=== PATIENT | male | born 1965 | race American Indian/Alaskan Native ===

== ENCOUNTER 2019-06-23 15:03 | Inpatient (IN) | payer MEDICARE ==
[2019-06-23] MEDS ORDERED: BISACODYL 10 MG RECT SUPP PR PRN ×2 (15:22→15:33)
[2019-06-23] MEDS ORDERED: POLYETHYLENE GLYCOL 3350 17 GM POWDER PO PRN (15:33)
[2019-06-23] MEDS ORDERED: ONDANSETRON 4 MG ODT TAB PO PRN (15:33)
[2019-06-23] MEDS ORDERED: hydrALAZINE 20 MG/1 ML INJ IV PRN (15:33)
[2019-06-23] MEDS ORDERED: ACETAMINOPHEN 325 MG TAB PO PRN (15:33)
[2019-06-23] MEDS: INSULIN LISPRO 100 UNIT/ML SUB-Q SCH ×2 (16:48→23:15)
[2019-06-23] MEDS ORDERED: HYDROcodone/ACETAMINOPHEN 5-325 MG TAB PO PRN (18:00)
[2019-06-23] MEDS: glipiZIDE 5 MG TAB PO SCH (21:16)
[2019-06-23] MEDS: HEPARIN 5,000 UNIT/1 ML VIAL SUB-Q SCH (21:17)
[2019-06-23] MEDS: FERROUS SULFATE 325 MG TAB PO SCH (21:17)
[2019-06-23] MEDS: CALCIUM ACETATE 667 MG CAP PO SCH (21:17)
[2019-06-24] MEDS: CARVEDILOL 6.25 MG TAB PO SCH ×3 (00:30→22:23)
[2019-06-24 06:19] LABS: Basophils % (Auto) 0.4 % (0.0-1.8); Eosinophils # (Auto) 0.1 K/mm3 (0.0-0.4); Eosinophils % (Auto) 1.7 % (0.0-4.3); Hematocrit 34.1 % (35.5-45.6); Hemoglobin 11.5 gm/dl (11.8-15.2); Lymphocytes # (Auto) 2.5 K/mm3 (1.2-5.4); Lymphocytes % (Auto) 33.4 % (13.4-35.0); Mean Corpuscular HGB Conc 34 % (32-34); Mean Corpuscular Volume 99 fl (84-94); Monocytes # (Auto) 0.6 K/mm3 (0.0-0.8); Monocytes % (Auto) 8.4 % (0.0-7.3); Platelet Count 145 K/mm3 (140-440); Red Blood Count 3.46 M/mm3 (3.65-5.03); Red Cell Distribution Width 15.7 % (13.2-15.2)
[2019-06-24 06:42] LABS: Albumin 4.5 g/dL (3.9-5); Calcium 8.9 mg/dL (8.4-10.2)
[2019-06-24] MEDS: INSULIN LISPRO 100 UNIT/ML SUB-Q SCH ×4 (07:54→22:29)
[2019-06-24] MEDS: FERROUS SULFATE 325 MG TAB PO SCH ×3 (09:30→22:22)
[2019-06-24] MEDS: CALCIUM ACETATE 667 MG CAP PO SCH ×3 (09:30→22:23)
[2019-06-24] MEDS: glipiZIDE 5 MG TAB PO SCH ×2 (09:45→16:48)
--- NOTE | 2019-06-24 10:16 | History and Physical Report ---
History of Present Illness Date: 06/24/19 Referring Facility: [facility] Date of admission: 06/23/19 15:22 Chief Complaint: CVA, left pontine and left cerebellum History of present illness: 53-year-old male who presented to dialysis with several days worth of right- sided weakness and facial droop. He previously been told to go to the ER when the symptoms appeared however he neglected to do so. When reporting for dialysis he was refused dialysis and sent directly to the ER. 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 His primary issue is loss of balance and some weakness accompanied by slight disturbance with dysphagia and slurred speech. Echocardiogram showed an ejection fraction of approximate 65% with grade 1 diastolic dysfunction and a positive PFO without emboli noted. there were PACs noted on EKG with cardiology but A flutter was ruled out. He is recommended to have a Holter test performed with cardiology to look for paroxysmal atrial fibrillation. With that new knowledge we will place him on telemetry monitoring while he is here and also request a cardiology consult. He remains on hemodialysis on Wed/Wed/Wed and dialysis has been consulted and called. Overall he appears to be in fairly good condition all things considered. Hope to see a good return of function for him over the next several weeks in therapy. Unfortunately shortly after arriving the patient was found on the floor. I haven't discussed with him and need to call for assistance until we have cleared him to safely get up and move around on his own. He denies any pain or injuries from the fall. Fall precautions were ordered at time of admission and I have asked again that bed alarm and wheelchair alarms be placed. After the patient was medically stabilized he was transferred for further rehabilitation. All available medical records have been reviewed. Plan of care was discussed with patient. Past History Past Medical History: arrhythmia, anemia, diabetes, dialysis, ESRD, heart failure, hypertension, other (impaired vision (patient states that he needs glasses)) Past Surgical History: Other (left fistula, right Vas-Cath) Social history: lives with family (lives in an apartment with family), smoking (former), full code. denies: alcohol abuse (occasional alcohol use), prescription drug abuse, IV drug use Family history: diabetes, hypertension Medications and Allergies Allergies Allergy/AdvReac Type Severity Reaction Status Date / Time No Known Allergies Allergy Verified 10/01/13 00:30 Home Medications Medication Instructions Recorded Confirmed Last Taken Type Aspirin [Aspirin Enteric Coated] 81 mg PO DAILY #30 tablet. 10/03/13 06/24/19 06/23/19 09:00 Rx Famotidine [Pepcid] 10 mg PO BID #60 tablet 10/03/13 06/24/19 06/23/19 08:00 Rx amLODIPine [Norvasc] 10 mg PO QDAY #30 tablet 10/03/13 06/24/19 06/23/19 08:00 Rx glipiZIDE [Glucotrol] 5 mg PO BID #60 tablet 10/03/13 06/24/19 06/23/19 21:30 Rx Active Meds: Active Medications Acetaminophen (Tylenol) 650 mg PO Q6H PRN PRN Reason: Non Cardiac Pain or Temp>100.5 Acetaminophen/Hydrocodone Bitart ([place] 5/325) 1 each PO Q6H PRN PRN Reason: Pain, Moderate (4-6) Amlodipine Besylate (Norvasc) 2.5 mg PO QDAY [facility] Aspirin (Ecotrin) 325 mg PO QDAY [facility] Atorvastatin Calcium (Lipitor) 40 mg PO QHS [facility] Last Admin: 06/23/19 21:17 Dose: 40 mg Documented by: Bisacodyl (Dulcolax) 10 mg [place] QDAY PRN PRN Reason: Constipation unrelieved by MOM Bisacodyl (Dulcolax) 10 mg [place] QDAY PRN PRN Reason: Constipation Calcium Acetate (Phoslo) 667 mg PO TID [facility] Last Admin: 06/23/19 21:17 Dose: 667 mg Documented by: Carvedilol (Coreg) 6.25 mg PO BID [facility] Last Admin: 06/24/19 00:30 Dose: Not Given Documented by: Dextrose (D50w (25gm) Syringe) 50 ml IV Q30MIN PRN PRN Reason: Hypoglycemia Ferrous Sulfate (Feosol) 325 mg PO TID [facility] Last Admin: 06/23/19 21:17 Dose: 325 mg Documented by: Glipizide (Glucotrol) 5 mg PO BIDDIAB [facility] Last Admin: 06/23/19 21:16 Dose: 5 mg Documented by: Heparin Sodium (Porcine) (Heparin) 5,000 unit SUB-Q Q12HR [facility] Last Admin: 06/23/19 21:17 Dose: 5,000 unit Documented by: Hydralazine HCl (Apresoline) 10 mg IV Q4HR PRN PRN Reason: HTN SBP>160 Insulin Human Lispro (Humalog) 0 unit SUB-Q ACHS [facility]; Protocol Last Admin: 06/24/19 07:54 Dose: Not Given Documented by: Losartan Potassium (Cozaar) 50 mg PO QDAY [facility] Ondansetron HCl (Zofran Odt) 4 mg PO Q8H PRN PRN Reason: Nausea And Vomiting Polyethylene Glycol (Miralax 3350) 17 gm PO QDAY PRN PRN Reason: Constipation Review of Systems All systems: negative (ROS negative for 12 systems except as noted below with pertinent positives and negatives.) Constitutional: weakness, no weight loss Ears, nose, mouth and throat: dysphagia, no decreased hearing Cardiovascular: no chest pain, no palpitations Respiratory: no cough, no shortness of breath Gastrointestinal: constipation, no abdominal pain, no nausea, no vomiting, no diarrhea Genitourinary Male: no dysuria Musculoskeletal: frequent falls, no arm numbness/tingling Integumentary: no rash, no pruritis, no sores Neurological: lack of coordination, change in speech, balance difficulties, gait dysfunction Psychiatric: no memory loss Exam - Exam Narrative exam: MUSCULOSKELETAL SPECIALTY EXAM CONSTITUTIONAL: Well developed, well nourished, appropriately groomed. LEFT hand dominant. LYMPHATIC: No appreciable abnormalities palpable in neck RESPIRATORY: Clear to auscultation bilaterally, no increased work of breathing CARDIOVASCULAR: Regular Rate/ Rhythm, no swelling, edema or tenderness in BUE or BLE. Pulses palpable in all extremities. All extremities warm. Left upper extremity thrill. Right-sided vas cath GI: + bowel sounds, soft, NTTP, nondistended. INTEGUMENTARY: Normal, no lesion, rash, masses or bruising noted in extremities. MUSCULOSKELETAL: BUE and BLE normal without defect, crepitus, subluxation, effusion, arthritic changes or TTP. R 4-/5 L 4+/5 ROM decreased on right Tone normal NEURO: CN II : Visual phipps full to confrontation CN II, III : PERRL CN III, IV, : EOMI CN V : Facial sensation intact CN VII : Slight right facial droop CN VIII : Hearing intact to finger rustle CN IX, X : Palate/uvula elevate midline, phonation normal CN XI : Intact shoulder shrug and head rotation CN XII : Tongue protrudes midline Sensation intact in all extremities without extinction. Reflexes 2+ on the left and 3+ on the right at biceps, brachioradialis and patella. No clonus at ankles. Coordination impaired on the right upper extremity No tremor noted in 4 extremities. Naming and repetition intact. Follows 2 step commands. Aphasia not appreciated Dysarthria slight Dysphagia present Neglect not appreciated POSTURE and GAIT: Sitting posture good. Balance impaired. Gait deferred until seen with therapy. PSYCH: Alert, oriented x3, affect appears flat. Insight appears impaired with lack of appreciation for deficits - Constitutional Vitals: Vital Signs - 12hr 06/24/19 06/24/19 06/24/19 00:28 00:30 03:26 Temperature 37.1 C Pulse Rate 74 78 Pulse Rate [ 72 Right Radial] Respiratory 17 17 Rate Blood Pressure 106/71 Blood Pressure 106/71 [Right] O2 Sat by Pulse 100 98 Oximetry 06/24/19 06/24/19 06/24/19 04:29 04:53 07:03 Temperature 36.9 C 36.7 C Pulse Rate 78 81 Pulse Rate [ Right Radial] Respiratory 20 20 Rate Blood Pressure 100/66 111/71 Blood Pressure [Right] O2 Sat by Pulse 97 98 97 Oximetry 06/24/19 06/24/19 08:36 08:37 Temperature Pulse Rate Pulse Rate [ Right Radial] Respiratory Rate Blood Pressure Blood Pressure [Right] O2 Sat by Pulse 100 100 Oximetry - Labs CBC & Chem 7: 06/24/19 05:42 06/24/19 05:42 Labs: Laboratory Results - last 72 hr 06/23/19 06/23/19 06/24/19 18:05 21:27 05:42 WBC 7.5 RBC 3.46 L Hgb 11.5 L Hct 34.1 L MCV 99 H MCH 33 H MCHC 34 RDW 15.7 H Plt Count 145 Lymph % (Auto) 33.4 [place] % (Auto) 8.4 H Eos % (Auto) 1.7 Baso % (Auto) 0.4 Lymph # 2.5 [place] # 0.6 Eos # 0.1 Baso # 0.0 Seg Neutrophils % 56.1 Seg Neutrophils # 4.2 Sodium Potassium Chloride Carbon Dioxide Anion Gap BUN Creatinine Estimated GFR BUN/Creatinine Ratio Glucose POC Glucose 169 H 154 H Calcium Total Bilirubin AST ALT Alkaline Phosphatase Total Protein Albumin Albumin/Globulin Ratio 06/24/19 06/24/19 05:42 07:12 WBC RBC Hgb Hct MCV MCH MCHC RDW Plt Count Lymph % (Auto) [place] % (Auto) Eos % (Auto) Baso % (Auto) Lymph # [place] # Eos # Baso # Seg Neutrophils % Seg Neutrophils # Sodium 139 Potassium 4.1 Chloride 93.1 L Carbon Dioxide 30 Anion Gap 20 BUN 29 H Creatinine 8.5 H Estimated GFR 8 BUN/Creatinine Ratio 3 Glucose 76 POC Glucose 69 L Calcium 8.9 Total Bilirubin 0.60 AST 26 ALT 20 Alkaline Phosphatase 63 Total Protein 7.8 Albumin 4.5 Albumin/Globulin Ratio 1.4 Assessment and Plan Assessment and plan: Patient was assessed and evaluated for Acute Inpatient Rehab Unit. Due to the patients above-mentioned medical complexity, along with decreased functional mobility and self care, this patient continues to require and be appropriate for a comprehensive, multidisciplinary [id number] rehabilitation program. These needs cannot be met in an outpatient or other less intensive setting. The patient would continue to benefit from skilled therapy intervention for at least 3 hours per day, five days a week, with techniques specific to the needs of the patient to improve function, activities of daily living, and reintegration into the community. The patient continues to require: -- OT to improve ROM, self-care, and learn use of adaptive equipment -- PT to improve strength and balance, functional transfers, and ambulation with energy conservation techniques to improve functional mobility -- LEAD CARPENTER to address cognitive deficits and swallowing ability -- 24 hour RN to ensure and prevent skin breakdown, promote progressive independence while ensuring safety, ensure education regarding medications, and incorporation of the rehabilitation at the bedside -- 24 hour Marriage Therapist to coordinate this interdisciplinary program, and to manage/prevent complications as a result of the patients medical comorbidities. -Plan of care by day 4 -Weekly team conferences With such a program, there is a reasonable certainty that the goals individualized for this patient can be achieved within the specified length of stay. CVA korey and cerebellum: Discussed with patient secondary stroke precautions and prognosis along with length of recovery. We'll continue to have conversation with the patient as we see him during his stay with us on rehabilitation. Continue secondary stroke precautions. Monitor for any neurological changes are need to reassess neuro status. Monitor for poststroke depression. End-stage renal disease on hemodialysis: Continue renal diet. Avoid nephrotoxic medications. Continue hemodialysis on Wednesday. Nephrology consulted. Diabetes: Continue carb controlled diet. Monitor blood glucose and treat with insulin as needed. Continue glipizide and adjust as needed. Hypertension: Continue medications as ordered. Monitor blood pressure and adjust medications as needed for normotension. Reid evaluate patient and see if we need to hold his blood pressure medications prior to dialysis days. Anemia: Chronic disease related. Continue iron and will order further workup as needed. Constipation: Continue medications and adjust as needed. When necessary quiroz ppositories available. Possible paroxysmal atrial fibrillation noted at outside hospital: We'll place on telemetry monitoring and request cardiology consult. Patient also has a PFO. Will need outside cardiology follow-up Z73.6 ADL dysfunction: OT will work on improving ability to perform ADLs (i ncluding assistive devices) to increase independence and decrease caregiver burden and improve functional transfers and mobility training. R26.2 Difficulty walking: PT will work on gait training and proper use of assistive devices and advance as appropriate to use of stairs and outside ambulation on uneven surfaces. R26.81 Unsteadiness on feet: PT will work on improving static and dynamic sitting and standing balance as well as proper use of assistive devices to decrease risk of falls. R26.89 Abnormality of gait: PT will work to improve safety and efficiency of gait through neuromotor training and gait training along with instruction on proper use of assistive devices. M62.81 Muscle weakness: PT & OT will work on strengthening exercises to improve functional strength including mixture of closed and open kinetic chain exercises. R53.81 Debility: PT & OT will work on improving overall functional status to improve participation with ADLs, mobility and social involvement. R53.83 Fatigue: PT & OT will work on improving endurance through aerobic exercises and therapeutic activity while monitoring patients tolerance for activity and vital signs as needed. DVT ppx: heparin Pain: Continue physical modalities in therapy and pain medications as needed to achieve functional pain control. Sleep: Monitor and address as needed. Bowel: Monitor and address as needed. Appetite: Monitor and address as needed. Discharge planning: Pending therapy progress and care plan meeting. Will cont inue discussion with therapy team, SW, patient and family. Restrictions/ Precautions: Falls, dysphagia, neuro WB status: FWB Functional Hx: ADLs: Independent Cognition: Independent Mobility: No AD Barriers to Discharge: Decreased mobility and ability to perform self care, balance deficits, weakness Estimated Length of Stay: 1418 days Discharge Destination: Home with family POST ADMISSION PHYSICIAN EVALUATION I have examined the patient and find that functional status, medical condition a nd appropriateness for IRF admission are essentially unchanged from those described in the preadmission screening. Will monitor for worsening neurologic condition, poststroke depression, shoulder-hand syndrome, DVT/PE, bowel and bladder complications and complications due to end-stage renal disease, diabetes, hypertension, anemia and electrolyte abnormalities. Will attempt to avoid occurrence of these issues or treat them if they present themselves.
--- NOTE | 2019-06-24 11:18 | Consultation ---
Medications and Allergies Allergies Allergy/AdvReac Type Severity Reaction Status Date / Time No Known Allergies Allergy Verified 10/01/13 00:30 Home Medications Medication Instructions Recorded Confirmed Last Taken Type Aspirin [Aspirin Enteric Coated] 81 mg PO DAILY #30 tablet. 10/03/13 06/24/19 06/23/19 09:00 Rx Famotidine [Pepcid] 10 mg PO BID #60 tablet 10/03/13 06/24/19 06/23/19 08:00 Rx amLODIPine [Norvasc] 10 mg PO QDAY #30 tablet 10/03/13 06/24/19 06/23/19 08:00 Rx glipiZIDE [Glucotrol] 5 mg PO BID #60 tablet 10/03/13 06/24/19 06/23/19 21:30 Rx Active Meds: Active Medications Acetaminophen (Tylenol) 650 mg PO Q6H PRN PRN Reason: Non Cardiac Pain or Temp>100.5 Acetaminophen/Hydrocodone Bitart ([place] 5/325) 1 each PO Q6H PRN PRN Reason: Pain, Moderate (4-6) Amlodipine Besylate (Norvasc) 2.5 mg PO QDAY [facility] Aspirin (Ecotrin) 325 mg PO QDAY [facility] Atorvastatin Calcium (Lipitor) 40 mg PO QHS [facility] Last Admin: 06/23/19 21:17 Dose: 40 mg Documented by: Bisacodyl (Dulcolax) 10 mg [place] QDAY PRN PRN Reason: Constipation unrelieved by MOM Bisacodyl (Dulcolax) 10 mg [place] QDAY PRN PRN Reason: Constipation Calcium Acetate (Phoslo) 667 mg PO TID [facility] Last Admin: 06/23/19 21:17 Dose: 667 mg Documented by: Carvedilol (Coreg) 6.25 mg PO BID [facility] Last Admin: 06/24/19 00:30 Dose: Not Given Documented by: Dextrose (D50w (25gm) Syringe) 50 ml IV Q30MIN PRN PRN Reason: Hypoglycemia Ferrous Sulfate (Feosol) 325 mg PO TID [facility] Last Admin: 06/23/19 21:17 Dose: 325 mg Documented by: Glipizide (Glucotrol) 5 mg PO BIDDIAB [facility] Last Admin: 06/23/19 21:16 Dose: 5 mg Documented by: Heparin Sodium (Porcine) (Heparin) 5,000 unit SUB-Q Q12HR [facility] Last Admin: 06/23/19 21:17 Dose: 5,000 unit Documented by: Hydralazine HCl (Apresoline) 10 mg IV Q4HR PRN PRN Reason: HTN SBP>160 Insulin Human Lispro (Humalog) 0 unit SUB-Q ACHS [facility]; Protocol Last Admin: 06/24/19 07:54 Dose: Not Given Documented by: Losartan Potassium (Cozaar) 50 mg PO QDAY [facility] Ondansetron HCl (Zofran Odt) 4 mg PO Q8H PRN PRN Reason: Nausea And Vomiting Polyethylene Glycol (Miralax 3350) 17 gm PO QDAY PRN PRN Reason: Constipation Exam - Vital Signs Vital signs: Vital Signs Temp Pulse Resp BP Pulse Ox 99.3 F 79 18 112/73 100 06/23/19 16:45 06/23/19 16:45 06/23/19 16:45 06/23/19 16:45 06/23/19 16:45 Results - Lab Results 06/24/19 05:42 06/24/19 05:42 Most recent lab results Calcium 8.9 mg/dL (8.4-10.2) 06/24/19 05:42
[2019-06-24] MEDS ORDERED: BISACODYL 5 MG TAB PO PRN (12:04)
[2019-06-24] MEDS: LOSARTAN 50 MG TAB PO SCH (12:52)
[2019-06-24] MEDS: ASPIRIN EC 325 MG TAB PO SCH (12:53)
[2019-06-24] MEDS: amLODIPine 5 MG TAB PO SCH (12:53)
[2019-06-24] MEDS: HEPARIN 5,000 UNIT/1 ML VIAL SUB-Q SCH ×2 (12:56→22:25)
[2019-06-25] MEDS: INSULIN LISPRO 100 UNIT/ML SUB-Q SCH ×4 (07:20→21:50)
[2019-06-25] MEDS: CARVEDILOL 6.25 MG TAB PO SCH ×2 (08:03→21:49)
[2019-06-25] MEDS: ASPIRIN EC 325 MG TAB PO SCH (08:04)
[2019-06-25] MEDS: CALCIUM ACETATE 667 MG CAP PO SCH ×3 (08:04→21:49)
[2019-06-25] MEDS: LOSARTAN 50 MG TAB PO SCH (08:04)
[2019-06-25] MEDS: glipiZIDE 5 MG TAB PO SCH ×2 (08:04→16:32)
[2019-06-25] MEDS: amLODIPine 5 MG TAB PO SCH (08:04)
[2019-06-25] MEDS: FERROUS SULFATE 325 MG TAB PO SCH ×3 (08:04→21:50)
[2019-06-25] MEDS: HEPARIN 5,000 UNIT/1 ML VIAL SUB-Q SCH ×2 (08:05→21:51)
[2019-06-25] MEDS: DEXTROSE 50% IN WATER (25GM) 50 ML SYRINGE IV PRN ×2 (11:43→16:18)
--- NOTE | 2019-06-25 12:08 | Progress Note ---
Subjective Interval history: Patient was seen today for follow-up on multiple renal related issues Events of this hospitalization were noted Interdisciplinary notes were also reviewed Vitals intake output medications were reviewed Past medical history: Reviewed Family, social history: Reviewed Allergies: Reviewed Physical examination General: No acute distress Vitals: Reviewed HEENT: Oral mucosa moist no icterus Neck: Supple no thyromegaly nodular mass or JVD Chest: Clear to auscultation anteriorly Heart: Regular rate and rhythm S1-S2 heard no S3-S4 Abdomen: Soft nontender no suprapubic masses no organomegaly Extremity: Dry skin less than 1+ edema Psych: No evidence of any agitation and aggression noted Derm: No petechial rash Assessment and plan: End-stage renal disease: Patient will continue with hemodialysis treatment on Wednesday and Wednesday ,scheduled as tolerated, monitor dialysis related labs Ultrafiltration only as tolerated Anemia and end-stage renal disease: To monitor and follow, erythropoietin as required goal hemoglobin dialysis patients usually occurring 10 and 12, we will follow Secondary hyperparathyroidism: Monitor phosphorus and PTH periodically and adjust binders as needed Diet and nutrition: Fluid restriction 1200 mL per day, high-protein diet may benefit from nutrition consultation , patient is protein intake should be 1.5 g per KG body weight Hypertension and volume continue to monitor, educated about fluid restriction sodium restriction/ discontinue amlodipine and continue with losartan Patient does exhibit good understanding of the renal related issues All renal related issues were discussed with the patient, patient does exhibit good understanding, lab results were also discussed with patient in simple Thai Prognosis: Guarded We'll continue to follow and make recommendation from renal standpoint Objective - Vital Signs Vital signs: Vital Signs - 12hr 06/25/19 06/25/19 06/25/19 04:30 07:17 08:03 Temperature 98.5 F 98.5 F Pulse Rate 74 69 69 Respiratory 20 18 Rate Blood Pressure 102/55 100/62 100/60 O2 Sat by Pulse 94 99 Oximetry 06/25/19 06/25/19 08:04 11:28 Temperature 98.3 F Pulse Rate 69 71 Respiratory 18 Rate Blood Pressure 100/60 114/70 O2 Sat by Pulse 99 Oximetry - Lab 06/24/19 05:42 06/24/19 05:42 Most recent lab results Calcium 8.9 mg/dL (8.4-10.2) 06/24/19 05:42 Medications & Allergies - Medications Allergies/Adverse Reactions: Allergies No Known Allergies Allergy (Verified 10/01/13 00:30) Home Medications: Home Medications Medication Instructions Recorded Confirmed Last Taken Type Aspirin [Aspirin Enteric Coated] 81 mg PO DAILY #30 tablet. 10/03/13 06/24/19 06/23/19 09:00 Rx Famotidine [Pepcid] 10 mg PO BID #60 tablet 10/03/13 06/24/19 06/23/19 08:00 Rx amLODIPine [Norvasc] 10 mg PO QDAY #30 tablet 10/03/13 06/24/19 06/23/19 08:00 Rx glipiZIDE [Glucotrol] 5 mg PO BID #60 tablet 10/03/13 06/24/19 06/23/19 21:30 Rx Active Medications: Generic Name Dose Route Start Last Admin Trade Name Freq PRN Reason Stop Dose Admin Acetaminophen 650 mg 06/23/19 15:33 Tylenol PO Q6H PRN Non Cardiac Pain or Temp>100.5 Acetaminophen/Hydrocodone Bitart 1 each 06/23/19 18:00 [place] 5/325 PO Q6H PRN Pain, Moderate (4-6) Amlodipine Besylate 2.5 mg 06/24/19 08:00 06/25/19 08:04 Norvasc PO 2.5 mg QDAY [facility] Administration Aspirin 325 mg 06/24/19 08:00 06/25/19 08:04 Ecotrin PO 325 mg QDAY [facility] Administration Atorvastatin Calcium 40 mg 06/23/19 21:00 06/24/19 22:23 Lipitor PO 40 mg QHS [facility] Administration Bisacodyl 10 mg 06/23/19 15:33 Dulcolax [place] QDAY PRN Constipation Bisacodyl 5 mg 06/24/19 12:04 Dulcolax PO QDAY PRN Constipation Calcium Acetate 667 mg 06/23/19 20:00 06/25/19 08:04 Phoslo PO 667 mg TID [facility] Administration Carvedilol 6.25 mg 06/23/19 22:00 06/25/19 08:03 Coreg PO 6.25 mg BID [facility] Administration Dextrose 50 ml 06/23/19 15:22 06/25/19 11:43 D50w (25gm) Syringe IV 50 ml Q30MIN PRN Administration Hypoglycemia Ferrous Sulfate 325 mg 06/23/19 20:00 06/25/19 08:04 Feosol PO 325 mg TID [facility] Administration Glipizide 5 mg 06/23/19 17:30 06/25/19 08:04 Glucotrol PO 5 mg BIDDIAB [facility] Administration Heparin Sodium (Porcine) 5,000 unit 06/23/19 22:00 06/24/19 22:25 Heparin SUB-Q 5,000 unit Q12HR [facility] Administration Hydralazine HCl 10 mg 06/23/19 15:33 Apresoline IV Q4HR PRN HTN SBP>160 Insulin Human Lispro 0 unit 06/23/19 16:30 06/25/19 11:38 Humalog SUB-Q Not Given ACHS [facility] Protocol Losartan Potassium 50 mg 06/24/19 08:00 06/25/19 08:04 Cozaar PO 50 mg QDAY [facility] Administration Ondansetron HCl 4 mg 06/23/19 15:33 Zofran Odt PO Q8H PRN Nausea And Vomiting Polyethylene Glycol 17 gm 06/23/19 15:33 06/24/19 15:00 Miralax 3350 PO 17 gm QDAY PRN Administration Constipation
[2019-06-25] MEDS ORDERED: SODIUM CHLORIDE 0.9% 100 ML IV PRN (12:30)
[2019-06-25 12:47] LABS: Hepatitis B Surface Antigen Non-Reactive (Negative); Hepatitis C Virus Antibody Non-Reactive (NonReactive)
[2019-06-26] MEDS: INSULIN LISPRO 100 UNIT/ML SUB-Q SCH ×4 (07:35→22:22)
[2019-06-26] MEDS: FERROUS SULFATE 325 MG TAB PO SCH ×3 (08:05→22:21)
[2019-06-26] MEDS: CALCIUM ACETATE 667 MG CAP PO SCH ×4 (08:07→19:09)
[2019-06-26] MEDS: CARVEDILOL 6.25 MG TAB PO SCH ×2 (08:34→22:21)
[2019-06-26] MEDS: ASPIRIN EC 325 MG TAB PO SCH (12:05)
[2019-06-26] MEDS: HEPARIN 5,000 UNIT/1 ML VIAL SUB-Q SCH ×2 (12:06→22:22)
[2019-06-26] MEDS: glipiZIDE 5 MG TAB PO SCH ×2 (13:07→18:39)
--- NOTE | 2019-06-26 13:25 | Progress Note ---
Subjective Date of service: 06/26/19 Principal diagnosis: CVA, left pontine and left cerebellum Interval history: 53-year-old male who presented to dialysis with several days worth of right-sided weakness and facial droop. He previously been told to go to the ER when the symptoms appeared however he neglected to do so. When reporting for dialysis he was refused dialysis and sent directly to the ER. 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 His primary issue is loss of balance and some weakness accompanied by slight disturbance with dysphagia and slurred speech. Echocardiogram showed an ejection fraction of approximate 65% with grade 1 diastolic dysfunction and a positive PFO without emboli noted. there were PACs noted on EKG with cardiology but A flutter was ruled out. He is recommended to have a Holter test performed with cardiology to look for paroxysmal atrial fibrillation. With that new knowledge we will place him on telemetry monitoring while he is here and also request a cardiology consult. He remains on hemodialysis on Wed/Wed/Wed and dialysis has been consulted and called. Overall he appears to be in fairly good condition all t hings considered. Hope to see a good return of function for him over the next several weeks in therapy. Unfortunately shortly after arriving the patient was found on the floor. I haven't discussed with him and need to call for assistance until we have cleared him to safely get up and move around on his own. He denies any pain or injuries from the fall. Fall precautions were ordered at time of admission and I have asked again that bed alarm and wheelchair alarms be placed. Patient is participating in therapy and making reasonable progress. Taking rest breaks as needed. +BM. Denies pain, palpitations, dyspnea, cough, N/V, weakness, or joint pain. We'll take a look at telemetry monitoring results today. We'll contact corporate travel manager to see if they will keep an eye on the patient while he is here on telemetry. We'll likely still need Holter monitoring as requested at outside hospital at discharge. Examined by [employer] and noted to have improved with swallowing and has advanced to regular/thin liquids. Multiple hypoglycemic episodes. Reduce glipizide and monitor. Patient still has decreased ability to perform self care, ADLs, and safe mobility with increased loss of balance and remains appropriate for inpatient rehabilitation. We will continue to monitor the patient's blood pressure, diabetes control, and renal function while regaining function and ability to perform self care. All records, vitals, labs and medications were reviewed. No other issues per patient, nursing or therapy. Objective - Exam Narrative Exam: MUSCULOSKELETAL SPECIALTY EXAM CONSTITUTIONAL: Well developed, well nourished, appropriately groomed. LEFT hand dominant. RESPIRATORY: Clear to auscultation bilaterally, no increased work of breathing CARDIOVASCULAR: Regular Rate/ Rhythm, no swelling, edema or tenderness in BUE or BLE. All extremities warm. Left upper extremity thrill. Right-sided vas cath GI: + bowel sounds, soft, NTTP, nondistended. INTEGUMENTARY: Normal, no lesion, rash, masses or bruising noted in extremities. MUSCULOSKELETAL: BUE and BLE normal without defect, crepitus, subluxation, effusion, arthritic changes or TTP. R 4-/5 L 4+/5 ROM decreased on right Tone normal NEURO: Slight right facial droop Sensation intact in all extremities without extinction. No tremor noted in 4 extremities. Naming and repetition intact. Follows 2 step commands. Aphasia not appreciated Dysarthria slight Dysphagia advanced to regular thins after examination by [employer] Neglect not appreciated POSTURE and GAIT: Sitting posture good. Balance impaired. Gait better with rolling walker, loss of balance occasionally. PSYCH: Alert, oriented x3, affect appears flat. Insight appears impaired with lack of appreciation for deficits - Constitutional Vitals: Vital Signs - 12hr 06/26/19 06/26/19 04:24 07:32 Temperature 36.8 C 36.6 C Pulse Rate 73 67 Respiratory 17 18 Rate Blood Pressure 108/65 119/66 O2 Sat by Pulse 97 99 Oximetry - Allied health notes Allied health notes reviewed: nursing, PT, ST, OT FIMS assessment as documented by PT/OT/ST: Social interaction/Memory/Problem solving Social Interaction FIM Score 7. Complete [place] (Interacts appropriately. Controls temper.) Memory FIM Score 4. Minimal Assistance (Recognizes and remembers 75-90%.) Problem Solving FIM Score 3. Moderate Assistance (Solves routine problems 50-74%.) Locomotion- walk/wheelchair Ambulation Distance 40 Eating Eating FIM Score 5. Supervision/Set-Up (Needs help w/ containers, cutting meat, etc.) - Labs CBC & Chem 7: 06/24/19 05:42 06/24/19 05:42 Labs: Laboratory Results - last 72 hr 06/23/19 06/23/19 06/24/19 18:05 21:27 05:42 WBC 7.5 RBC 3.46 L Hgb 11.5 L Hct 34.1 L MCV 99 H MCH 33 H MCHC 34 RDW 15.7 H Plt Count 145 Lymph % (Auto) 33.4 [place] % (Auto) 8.4 H Eos % (Auto) 1.7 Baso % (Auto) 0.4 Lymph # 2.5 [place] # 0.6 Eos # 0.1 Baso # 0.0 Seg Neutrophils % 56.1 Seg Neutrophils # 4.2 Sodium Potassium Chloride Carbon Dioxide Anion Gap BUN Creatinine Estimated GFR BUN/Creatinine Ratio Glucose POC Glucose 169 H 154 H Calcium Total Bilirubin AST ALT Alkaline Phosphatase Total Protein Albumin Albumin/Globulin Ratio Hepatitis A IgM Ab Hep Bs Antigen Hep B Core IgM Ab Hepatitis C Antibody 06/24/19 06/24/19 06/24/19 05:42 07:12 11:12 WBC RBC Hgb Hct MCV MCH MCHC RDW Plt Count Lymph % (Auto) [place] % (Auto) Eos % (Auto) Baso % (Auto) Lymph # [place] # Eos # Baso # Seg Neutrophils % Seg Neutrophils # Sodium 139 Potassium 4.1 Chloride 93.1 L Carbon Dioxide 30 Anion Gap 20 BUN 29 H Creatinine 8.5 H Estimated GFR 8 BUN/Creatinine Ratio 3 Glucose 76 POC Glucose 69 L 191 H Calcium 8.9 Total Bilirubin 0.60 AST 26 ALT 20 Alkaline Phosphatase 63 Total Protein 7.8 Albumin 4.5 Albumin/Globulin Ratio 1.4 Hepatitis A IgM Ab Hep Bs Antigen Hep B Core IgM Ab Hepatitis C Antibody 06/24/19 06/24/19 06/25/19 16:24 21:39 07:28 WBC RBC Hgb Hct MCV MCH MCHC RDW Plt Count Lymph % (Auto) [place] % (Auto) Eos % (Auto) Baso % (Auto) Lymph # [place] # Eos # Baso # Seg Neutrophils % Seg Neutrophils # Sodium Potassium Chloride Carbon Dioxide Anion Gap BUN Creatinine Estimated GFR BUN/Creatinine Ratio Glucose POC Glucose 127 H 91 95 Calcium Total Bilirubin AST ALT Alkaline Phosphatase Total Protein Albumin Albumin/Globulin Ratio Hepatitis A IgM Ab Hep Bs Antigen Hep B Core IgM Ab Hepatitis C Antibody 06/25/19 06/25/19 06/25/19 11:29 11:38 12:17 WBC RBC Hgb Hct MCV MCH MCHC RDW Plt Count Lymph % (Auto) [place] % (Auto) Eos % (Auto) Baso % (Auto) Lymph # [place] # Eos # Baso # Seg Neutrophils % Seg Neutrophils # Sodium Potassium Chloride Carbon Dioxide Anion Gap BUN Creatinine Estimated GFR BUN/Creatinine Ratio Glucose POC Glucose 46 L 191 H Calcium Total Bilirubin AST ALT Alkaline Phosphatase Total Protein Albumin Albumin/Globulin Ratio Hepatitis A IgM Ab Non-reactive Hep Bs Antigen Non-reactive Hep B Core IgM Ab Non-reactive Hepatitis C Antibody Non-reactive 06/25/19 06/25/19 06/25/19 16:13 18:01 20:16 WBC RBC Hgb Hct MCV MCH MCHC RDW Plt Count Lymph % (Auto) [place] % (Auto) Eos % (Auto) Baso % (Auto) Lymph # [place] # Eos # Baso # Seg Neutrophils % Seg Neutrophils # Sodium Potassium Chloride Carbon Dioxide Anion Gap BUN Creatinine Estimated GFR BUN/Creatinine Ratio Glucose POC Glucose 55 L 86 65 L Calcium Total Bilirubin AST ALT Alkaline Phosphatase Total Protein Albumin Albumin/Globulin Ratio Hepatitis A IgM Ab Hep Bs Antigen Hep B Core IgM Ab Hepatitis C Antibody 06/25/19 06/26/19 06/26/19 21:59 03:05 07:41 WBC RBC Hgb Hct MCV MCH MCHC RDW Plt Count Lymph % (Auto) [place] % (Auto) Eos % (Auto) Baso % (Auto) Lymph # [place] # Eos # Baso # Seg Neutrophils % Seg Neutrophils # Sodium Potassium Chloride Carbon Dioxide Anion Gap BUN Creatinine Estimated GFR BUN/Creatinine Ratio Glucose POC Glucose 92 105 56 L Calcium Total Bilirubin AST ALT Alkaline Phosphatase Total Protein Albumin Albumin/Globulin Ratio Hepatitis A IgM Ab Hep Bs Antigen Hep B Core IgM Ab Hepatitis C Antibody 06/26/19 11:42 WBC RBC Hgb Hct MCV MCH MCHC RDW Plt Count Lymph % (Auto) [place] % (Auto) Eos % (Auto) Baso % (Auto) Lymph # [place] # Eos # Baso # Seg Neutrophils % Seg Neutrophils # Sodium Potassium Chloride Carbon Dioxide Anion Gap BUN Creatinine Estimated GFR BUN/Creatinine Ratio Glucose POC Glucose 135 H Calcium Total Bilirubin AST ALT Alkaline Phosphatase Total Protein Albumin Albumin/Globulin Ratio Hepatitis A IgM Ab Hep Bs Antigen Hep B Core IgM Ab Hepatitis C Antibody Assessment and Plan CVA korey and cerebellum: Discussed with patient secondary stroke precautions and prognosis along with length of recovery. We'll continue to have conversation with the patient as we see him during his stay with us on rehabilitation. Continue secondary stroke precautions. Monitor for any neurological changes are need to reassess neuro status. Monitor for poststroke depression. End-stage renal disease on hemodialysis: Continue renal diet. Avoid nephrotoxic medications. Continue hemodialysis on Wednesday. Nephrology consulted. Diabetes: Continue carb controlled diet. Monitor blood glucose and treat with insulin as needed. Continue glipizide and adjust as needed -decreased due to hypoglycemic episodes on a regular basis. Hypertension: Continue medications as ordered. Monitor blood pressure and adjust medications as needed for normotension. Will evaluate patient and see if we need to hold his blood pressure medications prior to dialysis days. Anemia: Chronic disease related. Continue iron and will order further workup as needed. Constipation: Continue medications and adjust as needed. When necessary suppositories available. Possible paroxysmal atrial fibrillation noted at outside hospital: We'll place on telemetry monitoring and request cardiology consult. Patient also has a PFO. Will need outside cardiology follow-up Z73.6 ADL dysfunction: OT will work on improving ability to perform ADLs (including assistive devices) to increase independence and decrease caregiver burden and improve functional transfers and mobility training. R26.2 Difficulty walking: PT will work on gait training and proper use of assistive devices and advance as appropriate to use of stairs and outside ambulation on uneven surfaces. R26.81 Unsteadiness on feet: PT will work on improving static and dynamic sitting and standing balance as well as proper use of assistive devices to decrease risk of falls. R26.89 Abnormality of gait: PT will work to improve safety and efficiency of gait through neuromotor training and gait training along with instruction on proper use of assistive devices. M62.81 Muscle weakness: PT & OT will work on strengthening exercises to improve functional strength including mixture of closed and open kinetic chain exercises. R53.81 Debility: PT & OT will work on improving overall functional status to improve participation with ADLs, mobility and social involvement. R53.83 Fatigue: PT & OT will work on improving endurance through aerobic exercises and therapeutic activity while monitoring patients tolerance for activity and vital signs as needed. DVT ppx: heparin Pain: Continue physical modalities in therapy and pain medications as needed to achieve functional pain control. Sleep: Monitor and address as needed. Bowel: Monitor and address as needed. Appetite: Monitor and address as needed. Discharge planning: Pending therapy progress and care plan meeting. Will continue discussion with therapy team, SW, patient and family. Restrictions/ Precautions: Falls, dysphagia, neuro WB status: FWB Functional Hx: ADLs: Independent Cognition: Independent Mobility: No AD Barriers to Discharge: Decreased mobility and ability to perform self care, balance deficits, weakness Estimated Length of Stay: 1418 days Discharge Destination: Home with family
--- NOTE | 2019-06-26 13:32 | IRU Plan of Care ---
Interdisciplinary Plan of Care - IP IRU INTERDISCIPLINARY PLAN: [facility] Inpatient Rehab Unit Plan of Care IRU Interdisciplinary Care Plan Start: 06/23/19 17:15 Freq: Admission then PRN Status: Active Protocol: Document 06/26/19 12:29 TH (Rec: 06/26/19 12:57 TH [id number]) Interdisciplinary Problem List Interdisciplinary Problem List Interdisciplinary Problem List Impaired Eating/Swallowing, Query Text:Answers will Trigger Problems Impaired Bathing/Grooming, and Outcomes on Worklist. Impaired Dressing,Impaired Mobility,Impaired Transfers, Impaired Toileting,Impaired Comprehension,Impaired Expression,Impaired Problem Solving,Impaired Memory, Knowledge Deficits,Discharge Concerns,Impaired Safety, Medications Education,Diabetes Education,Impaired Cardiovascular System IRU Interdisciplinary Care Plan Therapy Services Therapy Services Will Include: Physical Therapy,Occupational Query Text:Patient will be seen for a Therapy,Speech Therapy minimum of 3 hours of daily therapy 5 out of 7 days a week. Therapy intensity may be adjusted within a 7 consecutive day period to effectively serve the individual needs of the patient. Treatment Frequency/Intensity/Duration Treatment Frequency 5x per week Treatment Intensity 3 hours per day Treatment Duration 14-18 days Problem Area: Eating/Swallowing Eating/Swallowing Outcomes Eating/Swallowing Interventions Problem Area: Bathing/Grooming Bathing/Grooming Outcomes Improve [place] w/ Grooming,Improve [place] w/ Bathing Bathing/Grooming Interventions ADL Training,Use of Assistive Devices,Therapeutic Exercise, Therapeutic Activity, Neuromuscular Re-Education, Balance Work,Activity Tolerance Work,Patient/ Caregiver Education Problem Area: Dressing Dressing Outcomes Improve [place] w/ UB Dressing,Improve [place] w/ LB Dressing Dressing Interventions ADL Training,Use of Assistive Devices,Neuromuscular Re- Education,Therapeutic Exercise ,Balance Work,Modalities, Patient/Caregiver Education Problem Area: Mobility Mobility Outcomes Improve [place] w/ Bed Mobility,Improve [place] w/ Ambulation,Improve [place] w/ Stairs/Curb, Improve [place] w/ Wheelchair Mobility Interventions Therapeutic Exercise, Neuromuscular Re-Ed.,Activity Tolerance Work,Use of Assistive Devices,Patient/ Caregiver Education,Gait Training,Household Mobility Work,W/C Mobility Work Problem Area: Transfers Transfers Outcomes Improve [place] w/ Bed Transfers,Improve [place] w/ Toilet Transfers,Improve [place] w/ Tub/Shower Transfers,Improve [place] w/ Car Transfers Transfers Interventions Transfer Training,Therapeutic Exercise,Neuromuscular Re- Education,Activity Tolerance Work,Use of Assistive Devices, Patient/Caregiver Education Problem Area: Bowel/Bladder Managment Bowel/Bladder Outcomes Bowel/Bladder Interventions Problem Area: Toileting Toileting Outcomes Improve [place] w/ Toileting Toileting Interventions ADL Training,Balance Work,Use of Assistive Devices,Patient/ Caregiver Education Problem Area: Nutrition Nutrition Outcomes Nutrition Interventions Problem Area: Comprehension Comprehension Outcomes Improve Comprehension,Follow Commands,Improve Communication Comprehension Interventions Patient/Caregiver Education Problem Area: Expression Expression Outcomes Improve Intelligibility, Improve Verbalization Expression Interventions Expressive Language,Patient/ Caregiver Education Problem Area: Problem Solving Problem Solving Outcomes Improve Problem Solving Problem Solving Interventions Cognitive Training,Patient/ Caregiver Education Problem Area: Memory Memory Outcomes Use Memory Aids Memory Interventions Patient/Caregiver Education Problem Area: Pain Management Pain Management Outcomes Pain Management Interventions Problem Area: Knowledge Deficits Knowledge Deficits Outcomes Demonstrate Ability to Manage Blood Glucose,Verbalize Understanding of S/S of Stroke Knowledge Deficits Interventions Disease/Injury/Sx. Intervention Education,Disease Management Education,Health Maintainence Education Problem Area: Skin/Tissue Integrity Skin/Tissue Integrity Outcomes Skin/Tissue Integrity Interventions Problem Area: Social Interaction Social Interaction Outcomes Social Interaction Interventions Problem Area: Adjustment to Disability Adjustment to Disability Outcomes Adjustment to Disability Interventions Problem Area: Discharge Concerns Discharge Concerns Outcomes Discharge w/ Necessary Equipment,Have Home Health/ Outpatient Services Discharge Concerns Interventions Discharge Planning,Family/ Caregiver Training Problem Area: Community Reintegration Community Reintegration Outcomes Community Reintegration Interventions Problem Area: Home Management Home Management Outcomes Improve [place] w/ Home Management Home Management Interventions Meal Preparation,Clothing Care ,Activity Tolerance Work, Leisure Skills Development, House Cleaning,Shopping, Patient/Caregiver Education Problem Area: Safety Safety Outcomes Demonstrate Good Safety w/ Transfers/Mobility Safety Interventions Identify Fall Risk,Re-Educate Patient/Caregiver for Safety ( Post Fall Update) Problem Area: Medication Education Medication Education Outcomes Patient/Caregiver will Verbalize Understanding of Medications Medication Education Interventions Explain Administration/Side Effects/Interactions Problem Area: Diabetes Education Diabetes Education Outcomes Demonstrate Knowledge of Resources Availlable in Diabetic Ed. Folder Diabetes Education Interventions Discuss Pathophysiology of Diabetes Problem Area: Oxygenation Oxygenation Outcomes Oxygenation Interventions Problem Area: Cardiovascular Cardiovascular Outcomes Maintain or Improve Cardiovascular Status Cardiovascular Interventions Assess Vital Signs at least Every 4 hours,Cardiac Monitoring, EKG and ABG as Ordered. Physician Only Medical Prognosis and Rehabilitation Potential (Completed by Physician) patient has good medical prognosis and rehabilitation potential. Fortunately his CVA left him with reasonable strength but he does have fairly significant loss of balance. Input for the plan of care has been obtained from various therapy disciplines and has been reviewed and deemed appropriate/edited by me. Patient will discharge home with family who will help provide care for him and he does live in a second- floor apartment with them. This plan of care has been developed based on the findings from the pre- admission assessment, post admission physician evaluation, information gathered from the assessments from all therapy disciplines and other pertinent clinicians. The plan of care has been reviewed and discussed in collaboration with the interdisciplinary team. The plan of care will be reviewed and updated at least weekly.
[2019-06-26] MEDS: LOSARTAN 50 MG TAB PO SCH (19:09)
[2019-06-26] MEDS ORDERED: SODIUM CHLORIDE*PRIMING MACHINE ONLY FOR DIALYSIS MC ONE (19:54)
--- NOTE | 2019-06-26 21:11 | Progress Note ---
Assessment and Plan - Patient Problems (1) End stage renal disease Current Visit: Yes Status: Acute Plan to address problem: End stage renal disease : continue HD MWF right IJ perm cath has left arm AVF. (2) CVA (cerebral vascular accident) Current Visit: Yes Status: Acute Plan to address problem: acute CVA -currently undergoing rehab right sided weakness reviewed CT with left cerebellar and pontine infarct continue aspirin and statin (3) Diabetes Current Visit: No Status: Chronic Plan to address problem: DM type II ensure medicaton monitor fingersticks. (4) Hypertension Current Visit: No Status: Chronic Plan to address problem: HTN; controlled. continue current medications. Subjective Principal diagnosis: CVA, left pontine and left cerebellum Interval history: 53 year old with medical history of HTN , ESRD admitted with right sided weakness , gait instabilit found to have acute left cerebellar and pointe infarct. patient seen today undergoing rehab. denies any edema denies any shortness of breath Objective - Vital Signs Vital signs: Vital Signs - 12hr 06/26/19 06/26/19 06/26/19 12:39 14:20 14:30 Temperature 98.1 F 98.2 F Pulse Rate 74 73 67 Respiratory 18 18 Rate Blood Pressure 112/57 125/67 129/64 O2 Sat by Pulse 99 Oximetry 06/26/19 06/26/19 06/26/19 14:45 15:00 15:15 Temperature Pulse Rate 67 68 67 Respiratory Rate Blood Pressure 120/67 119/67 117/67 O2 Sat by Pulse Oximetry 06/26/19 06/26/19 06/26/19 15:30 15:45 16:00 Temperature Pulse Rate 73 72 76 Respiratory Rate Blood Pressure 114/81 139/78 129/82 O2 Sat by Pulse Oximetry 06/26/19 06/26/19 06/26/19 16:15 16:30 16:45 Temperature Pulse Rate 73 75 80 Respiratory Rate Blood Pressure 139/76 135/82 135/59 O2 Sat by Pulse Oximetry 06/26/19 06/26/19 06/26/19 17:00 17:15 17:30 Temperature Pulse Rate 75 73 73 Respiratory Rate Blood Pressure 139/79 128/69 121/73 O2 Sat by Pulse Oximetry 06/26/19 06/26/19 06/26/19 17:50 18:00 19:48 Temperature 98.0 F 98.0 F Pulse Rate 74 76 82 Respiratory 18 17 Rate Blood Pressure 138/72 138/72 112/65 O2 Sat by Pulse 99 Oximetry - General Appearance General appearance: well-developed, well-nourished EENT: ATNC, PERRL Neck: no JVD Respiratory: Present: Clear to Ascultation Cardiology: regular, S1S2 Gastrointestinal: normal, normoactive bowel sounds Integumentary: no rash Neurologic: CN 3-12 intact, other (right sided weakness.) Musculoskeletal: other (no edema) Psychiatric: mood/affect appropriate - Lab 06/24/19 05:42 06/24/19 05:42 Most recent lab results Calcium 8.9 mg/dL (8.4-10.2) 06/24/19 05:42 - Imaging Other: other (i reviewed CT with concern for left sided cerebellar infarct. ) Medications & Allergies - Medications Allergies/Adverse Reactions: Allergies No Known Allergies Allergy (Verified 10/01/13 00:30) Home Medications: Home Medications Medication Instructions Recorded Confirmed Last Taken Type Aspirin [Aspirin Enteric Coated] 81 mg PO DAILY #30 tablet. 10/03/13 06/24/19 06/23/19 09:00 Rx Famotidine [Pepcid] 10 mg PO BID #60 tablet 10/03/13 06/24/19 06/23/19 08:00 Rx amLODIPine [Norvasc] 10 mg PO QDAY #30 tablet 10/03/13 06/24/19 06/23/19 08:00 Rx glipiZIDE [Glucotrol] 5 mg PO BID #60 tablet 10/03/13 06/24/19 06/23/19 21:30 Rx Active Medications: Generic Name Dose Route Start Last Admin Trade Name Freq PRN Reason Stop Dose Admin Acetaminophen 650 mg 06/23/19 15:33 Tylenol PO Q6H PRN Non Cardiac Pain or Temp>100.5 Acetaminophen/Hydrocodone Bitart 1 each 06/23/19 18:00 [place] 5/325 PO Q6H PRN Pain, Moderate (4-6) Aspirin 325 mg 06/24/19 08:00 06/26/19 12:05 Ecotrin PO 325 mg QDAY SANTY Administration Atorvastatin Calcium 40 mg 06/23/19 21:00 06/25/19 21:48 Lipitor PO 40 mg QHS SANTY Administration Bisacodyl 10 mg 06/23/19 15:33 Dulcolax MO QDAY PRN Constipation Bisacodyl 5 mg 06/24/19 12:04 Dulcolax PO QDAY PRN Constipation Calcium Acetate 667 mg 06/26/19 08:47 06/26/19 19:09 Phoslo PO 667 mg TIDWM SANTY Administration Carvedilol 6.25 mg 06/23/19 22:00 06/26/19 08:34 Coreg PO Not Given BID SANTY Dextrose 50 ml 06/23/19 15:22 06/25/19 16:18 D50w (25gm) Syringe IV 50 ml Q30MIN PRN Administration Hypoglycemia Ferrous Sulfate 325 mg 06/23/19 20:00 06/26/19 13:06 Feosol PO 325 mg TID SANTY Administration Glipizide 2.5 mg 06/26/19 13:19 06/26/19 18:39 Glucotrol PO Not Given BIDDIAB [facility] Heparin Sodium (Porcine) 5,000 unit 06/23/19 22:00 06/26/19 12:06 Heparin SUB-Q 5,000 unit Q12HR SANTY Administration Hydralazine HCl 10 mg 06/23/19 15:33 Apresoline IV Q4HR PRN HTN SBP>160 Sodium Chloride 100 mls @ 999 mls/hr 06/25/19 12:30 Nacl 0.9% IV ALLAN PRN Hypotension Insulin Human Lispro 0 unit 06/23/19 16:30 06/26/19 17:11 Humalog SUB-Q Not Given ACHS [facility] Protocol Losartan Potassium 50 mg 06/24/19 08:00 06/26/19 19:09 Cozaar PO 50 mg QDAY SANTY Administration Ondansetron HCl 4 mg 06/23/19 15:33 Zofran Odt PO Q8H PRN Nausea And Vomiting Polyethylene Glycol 17 gm 06/23/19 15:33 06/24/19 15:00 Miralax 3350 PO 17 gm QDAY PRN Administration Constipation
[2019-06-27] MEDS: INSULIN LISPRO 100 UNIT/ML SUB-Q SCH ×4 (08:36→22:16)
[2019-06-27] MEDS: CALCIUM ACETATE 667 MG CAP PO SCH ×3 (09:18→17:02)
[2019-06-27] MEDS: ASPIRIN EC 325 MG TAB PO SCH (09:18)
[2019-06-27] MEDS: FERROUS SULFATE 325 MG TAB PO SCH ×3 (09:18→22:17)
[2019-06-27] MEDS: glipiZIDE 5 MG TAB PO SCH ×2 (09:20→17:06)
[2019-06-27] MEDS: CARVEDILOL 6.25 MG TAB PO SCH ×2 (10:28→22:15)
[2019-06-27] MEDS: LOSARTAN 50 MG TAB PO SCH (10:29)
--- NOTE | 2019-06-27 10:52 | Progress Note ---
Subjective Date of service: 06/27/19 Principal diagnosis: CVA, left pontine and left cerebellum Interval history: 53-year-old male who presented to dialysis with several days worth of right-sided weakness and facial droop. He previously been told to go to the ER when the symptoms appeared however he neglected to do so. When reporting for dialysis he was refused dialysis and sent directly to the ER. 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 His primary issue is loss of balance and some weakness accompanied by slight disturbance with dysphagia and slurred speech. Echocardiogram showed an ejection fraction of approximate 65% with grade 1 diastolic dysfunction and a positive PFO without emboli noted. there were PACs noted on EKG with cardiology but A flutter was ruled out. He is recommended to have a Holter test performed with cardiology to look for paroxysmal atrial fibrillation. With that new knowledge we will place him on telemetry monitoring while he is here and also request a cardiology consult. He remains on hemodialysis on Wed/Wed/Wed and dialysis has been consulted and called. Overall he appears to be in fairly good condition all t hings considered. Hope to see a good return of function for him over the next several weeks in therapy. Unfortunately shortly after arriving the patient was found on the floor. I haven't discussed with him and need to call for assistance until we have cleared him to safely get up and move around on his own. He denies any pain or injuries from the fall. Fall precautions were ordered at time of admission and I have asked again that bed alarm and wheelchair alarms be placed. Patient is participating in therapy and making reasonable progress. Taking rest breaks as needed. -BM. Denies pain, palpitations, dyspnea, cough, N/V, weakness, or joint pain. Telemonitoring with no abnormal results so far. Adjust bowel meds, positive flatus but denies BM today. Blood glucose looks better. Attempted ambulation with quadcane - not safe at this point, still dragging R toe. Patient still has decreased ability to perform self care, ADLs, and safe mobility with increased loss of balance and remains appropriate for inpatient rehabilitation. We will continue to monitor the patient's blood pres sure, diabetes control, and renal function while regaining function and ability to perform self care. All records, vitals, labs and medications were reviewed. No other issues per patient, nursing or therapy. Objective - Exam Narrative Exam: MUSCULOSKELETAL SPECIALTY EXAM CONSTITUTIONAL: Well developed, well nourished, appropriately groomed. LEFT hand dominant. RESPIRATORY: Clear to auscultation bilaterally, no increased work of breathing CARDIOVASCULAR: Regular Rate/ Rhythm, no swelling, edema or tenderness in BUE or BLE. All extremities warm. Left upper extremity thrill. Right-sided cath GI: + bowel sounds, soft, NTTP, nondistended. INTEGUMENTARY: Normal, no lesion, rash, masses or bruising noted in extremities. MUSCULOSKELETAL: BUE and BLE normal without defect, crepitus, subluxation, effusion, arthritic changes or TTP. R 4-/5 L 4+/5 ROM decreased on right Tone normal NEURO: Slight right facial droop Sensation intact in all extremities without extinction. No tremor noted in 4 extremities. Naming and repetition intact. Follows 2 step commands. Aphasia not appreciated Dysarthria slight Dysphagia advanced to regular thins after examination by RAG WILLOW OPERATOR Neglect not appreciated POSTURE and GAIT: Sitting posture good. Balance impaired. Gait better with rolling walker, loss of balance. PSYCH: Alert, oriented x3, affect appears flat. Insight appears impaired with lack of appreciation for deficits - Constitutional Vitals: Vital Signs - 12hr 06/27/19 06/27/19 06/27/19 04:34 04:40 06:34 Temperature 37.0 C Pulse Rate 66 69 69 Respiratory 17 Rate Blood Pressure Blood Pressure 97/56 [Right] O2 Sat by Pulse 96 96 Oximetry 06/27/19 06/27/19 06/27/19 07:34 10:24 10:28 Temperature 36.8 C Pulse Rate 69 70 96 H Respiratory 18 Rate Blood Pressure 103/56 103/56 Blood Pressure 105/60 [Right] O2 Sat by Pulse 96 Oximetry 06/27/19 10:29 Temperature Pulse Rate 96 H Respiratory Rate Blood Pressure 103/56 Blood Pressure [Right] O2 Sat by Pulse Oximetry - Allied health notes Allied health notes reviewed: nursing, PT, ST, OT FIMS assessment as documented by PT/OT/ST: Social interaction/Memory/Problem solving Social Interaction FIM Score 7. Complete [place] (Interacts appropriately. Controls temper.) Memory FIM Score 4. Minimal Assistance (Recognizes and remembers 75-90%.) Problem Solving FIM Score 3. Moderate Assistance (Solves routine problems 50-74%.) Transfers Mode of Locomotion: Wheelchair Bed/Chair/Wheelchair Transfers 4. Minimal Assistance (Patient = 75% or more. FIM Score Needs touching.) Locomotion- walk/wheelchair Ambulation Distance 40 Eating Eating FIM Score 5. Supervision/Set-Up (Needs help w/ containers, cutting meat, etc.) - Labs CBC & Chem 7: 06/24/19 05:42 06/27/19 08:45 Labs: Laboratory Results - last 72 hr 06/24/19 06/24/19 06/24/19 11:12 16:24 21:39 Sodium Potassium Chloride Carbon Dioxide Anion Gap BUN Creatinine Estimated GFR BUN/Creatinine Ratio Glucose POC Glucose 191 H 127 H 91 Calcium Hepatitis A IgM Ab Hep Bs Antigen Hep B Core IgM Ab Hepatitis C Antibody 06/25/19 06/25/19 06/25/19 07:28 11:29 11:38 Sodium Potassium Chloride Carbon Dioxide Anion Gap BUN Creatinine Estimated GFR BUN/Creatinine Ratio Glucose POC Glucose 95 46 L Calcium Hepatitis A IgM Ab Non-reactive Hep Bs Antigen Non-reactive Hep B Core IgM Ab Non-reactive Hepatitis C Antibody Non-reactive 06/25/19 06/25/19 06/25/19 12:17 16:13 18:01 Sodium Potassium Chloride Carbon Dioxide Anion Gap BUN Creatinine Estimated GFR BUN/Creatinine Ratio Glucose POC Glucose 191 H 55 L 86 Calcium Hepatitis A IgM Ab Hep Bs Antigen Hep B Core IgM Ab Hepatitis C Antibody 06/25/19 06/25/19 06/26/19 20:16 21:59 03:05 Sodium Potassium Chloride Carbon Dioxide Anion Gap BUN Creatinine Estimated GFR BUN/Creatinine Ratio Glucose POC Glucose 65 L 92 105 Calcium Hepatitis A IgM Ab Hep Bs Antigen Hep B Core IgM Ab Hepatitis C Antibody 06/26/19 06/26/19 06/26/19 07:41 11:42 18:43 Sodium Potassium Chloride Carbon Dioxide Anion Gap BUN Creatinine Estimated GFR BUN/Creatinine Ratio Glucose POC Glucose 56 L 135 H 52 L Calcium Hepatitis A IgM Ab Hep Bs Antigen Hep B Core IgM Ab Hepatitis C Antibody 06/26/19 06/27/19 06/27/19 22:03 07:56 08:04 Sodium Potassium Chloride Carbon Dioxide Anion Gap BUN Creatinine Estimated GFR BUN/Creatinine Ratio Glucose POC Glucose 132 H 50 L 45 L Calcium Hepatitis A IgM Ab Hep Bs Antigen Hep B Core IgM Ab Hepatitis C Antibody 06/27/19 06/27/19 08:45 09:16 Sodium 136 L Potassium 4.5 Chloride 93.7 L Carbon Dioxide 26 Anion Gap 21 BUN 36 H Creatinine 9.3 H Estimated GFR 7 BUN/Creatinine Ratio 4 Glucose 153 H POC Glucose 166 H Calcium 9.0 Hepatitis A IgM Ab Hep Bs Antigen Hep B Core IgM Ab Hepatitis C Antibody Assessment and Plan CVA korey and cerebellum: Discussed with patient secondary stroke precautions and prognosis along with length of recovery. We'll continue to have conversation with the patient as we see him during his stay with us on rehabilitation. Continue secondary stroke precautions. Monitor for any neurological changes are need to reassess neuro status. Monitor for poststroke depression. End-stage renal disease on hemodialysis: Continue renal diet. Avoid nephrotoxic medications. Continue hemodialysis on Wednesday. Nephrology consulted. Diabetes: Continue carb controlled diet. Monitor blood glucose and treat with insulin as needed. Continue glipizide and adjust as needed -decreased due to hypoglycemic episodes on a regular basis. Hypertension: Continue medications as ordered. Monitor blood pressure and adjust medications as needed for normotension. Will evaluate patient and see if we need to hold his blood pressure medications prior to dialysis days. Anemia: Chronic disease related. Continue iron and will order further workup as needed. Constipation: Continue medications and adjust as needed. PRN suppositories av ailable. Scheduled miralax Possible paroxysmal atrial fibrillation noted at outside hospital: We'll place on telemetry monitoring and request cardiology consult. Patient also has a PFO. Will need outside cardiology follow-up Z73.6 ADL dysfunction: OT will work on improving ability to perform ADLs (including assistive devices) to increase independence and decrease caregiver burden and improve functional transfers and mobility training. R26.2 Difficulty walking: PT will work on gait training and proper use of assistive devices and advance as appropriate to use of stairs and outside ambulation on uneven surfaces. R26.81 Unsteadiness on feet: PT will work on improving static and dynamic sit ting and standing balance as well as proper use of assistive devices to decrease risk of falls. R26.89 Abnormality of gait: PT will work to improve safety and efficiency of gait through neuromotor training and gait training along with instruction on proper use of assistive devices. M62.81 Muscle weakness: PT & OT will work on strengthening exercises to improve functional strength including mixture of closed and open kinetic chain exercises. R53.81 Debility: PT & OT will work on improving overall functional status to improve participation with ADLs, mobility and social involvement. R53.83 Fatigue: PT & OT will work on improving endurance through aerobic exercises and therapeutic activity while monitoring patients tolerance for activity and vital signs as needed. DVT ppx: heparin Pain: Continue physical modalities in therapy and pain medications as needed to achieve functional pain control. Sleep: Monitor and address as needed. Bowel: Monitor and address as needed. Appetite: Monitor and address as needed. Discharge planning: Pending therapy progress and care plan meeting. Will continue discussion with therapy team, SW, patient and family. Restrictions/ Precautions: Falls, dysphagia, neuro WB status: FWB Functional Hx: ADLs: Independent Cognition: Independent Mobility: No AD Barriers to Discharge: Decreased mobility and ability to perform self care, balance deficits, weakness Estimated Length of Stay: 1418 days Discharge Destination: Home with family
--- NOTE | 2019-06-27 11:07 | Progress Note ---
Assessment and Plan - Patient Problems (1) End stage renal disease Current Visit: Yes Status: Acute Plan to address problem: End stage renal disease : continue HD MWF right IJ perm cath has left arm AVF. (2) CVA (cerebral vascular accident) Current Visit: Yes Status: Acute Plan to address problem: acute CVA -currently undergoing rehab right sided weakness reviewed CT with left cerebellar and pontine infarct continue aspirin and statin (3) Diabetes Current Visit: No Status: Chronic Plan to address problem: DM type II ensure medicaton monitor fingersticks. (4) Hypertension Current Visit: No Status: Chronic Plan to address problem: HTN; controlled. continue current medications. Subjective Principal diagnosis: CVA, left pontine and left cerebellum Interval history: 53 year old with medical history of HTN , ESRD admitted with right sided weakness , gait instabilit found to have acute left cerebellar and pointe infarct. patient seen today received HD yesterday no fevers or chills. denies any edema denies any shortness of breath Objective - Vital Signs Vital signs: Vital Signs - 12hr 06/27/19 06/27/19 06/27/19 04:34 04:40 06:34 Temperature 98.6 F Pulse Rate 66 69 69 Respiratory 17 Rate Blood Pressure Blood Pressure 97/56 [Right] O2 Sat by Pulse 96 96 Oximetry 06/27/19 06/27/19 06/27/19 07:34 10:24 10:28 Temperature 98.2 F Pulse Rate 69 70 96 H Respiratory 18 Rate Blood Pressure 103/56 103/56 Blood Pressure 105/60 [Right] O2 Sat by Pulse 96 Oximetry 06/27/19 10:29 Temperature Pulse Rate 96 H Respiratory Rate Blood Pressure 103/56 Blood Pressure [Right] O2 Sat by Pulse Oximetry - General Appearance General appearance: well-developed, well-nourished EENT: ATNC, PERRL Neck: no JVD Respiratory: Present: Clear to Ascultation Cardiology: regular, S1S2 Gastrointestinal: normal, normoactive bowel sounds Integumentary: no rash Neurologic: alert and oriented x3, CN 3-12 intact Psychiatric: mood/affect appropriate - Lab 06/24/19 05:42 06/27/19 08:45 Most recent lab results Calcium 9.0 mg/dL (8.4-10.2) 06/27/19 08:45 - Imaging Kidney/bladder ultrasound: other (i reviewed renal us with large kidneys bilaterally. ) Medications & Allergies - Medications Allergies/Adverse Reactions: Allergies No Known Allergies Allergy (Verified 10/01/13 00:30) Home Medications: Home Medications Medication Instructions Recorded Confirmed Last Taken Type Aspirin [Aspirin Enteric Coated] 81 mg PO DAILY #30 tablet. 10/03/13 06/24/19 06/23/19 09:00 Rx Famotidine [Pepcid] 10 mg PO BID #60 tablet 10/03/13 06/24/19 06/23/19 08:00 Rx amLODIPine [Norvasc] 10 mg PO QDAY #30 tablet 10/03/13 06/24/19 06/23/19 08:00 Rx glipiZIDE [Glucotrol] 5 mg PO BID #60 tablet 10/03/13 06/24/19 06/23/19 21:30 Rx Active Medications: Generic Name Dose Route Start Last Admin Trade Name Freq PRN Reason Stop Dose Admin Acetaminophen 650 mg 06/23/19 15:33 Tylenol PO Q6H PRN Non Cardiac Pain or Temp>100.5 Acetaminophen/Hydrocodone Bitart 1 each 06/23/19 18:00 [place] 5/325 PO Q6H PRN Pain, Moderate (4-6) Aspirin 325 mg 06/24/19 08:00 06/27/19 09:18 Ecotrin PO 325 mg QDAY SANTY Administration Atorvastatin Calcium 40 mg 06/23/19 21:00 06/26/19 22:21 Lipitor PO 40 mg QHS SANTY Administration Bisacodyl 10 mg 06/23/19 15:33 Dulcolax DC QDAY PRN Constipation Bisacodyl 5 mg 06/24/19 12:04 Dulcolax PO QDAY PRN Constipation Calcium Acetate 667 mg 06/26/19 08:47 06/27/19 09:18 Phoslo PO 667 mg TIDWM SANTY Administration Carvedilol 6.25 mg 06/23/19 22:00 06/27/19 10:28 Coreg PO Not Given BID SANTY Dextrose 50 ml 06/23/19 15:22 06/25/19 16:18 D50w (25gm) Syringe IV 50 ml Q30MIN PRN Administration Hypoglycemia Ferrous Sulfate 325 mg 06/23/19 20:00 06/27/19 09:18 Feosol PO 325 mg TID SANTY Administration Glipizide 2.5 mg 06/26/19 13:19 06/27/19 09:20 Glucotrol PO 2.5 mg BIDDIAB [facility] Administration Heparin Sodium (Porcine) 5,000 unit 06/23/19 22:00 06/26/19 22:22 Heparin SUB-Q 5,000 unit Q12HR SANTY Administration Hydralazine HCl 10 mg 06/23/19 15:33 Apresoline IV Q4HR PRN HTN SBP>160 Sodium Chloride 100 mls @ 999 mls/hr 06/25/19 12:30 Nacl 0.9% IV ALLAN PRN Hypotension Insulin Human Lispro 0 unit 06/23/19 16:30 06/27/19 08:36 Humalog SUB-Q Not Given ACHS [facility] Protocol Losartan Potassium 50 mg 06/24/19 08:00 06/27/19 10:29 Cozaar PO Not Given QDAY [facility] Ondansetron HCl 4 mg 06/23/19 15:33 Zofran Odt PO Q8H PRN Nausea And Vomiting Polyethylene Glycol 17 gm 06/23/19 15:33 06/24/19 15:00 Miralax 3350 PO 17 gm QDAY PRN Administration Constipation
[2019-06-27] MEDS: HEPARIN 5,000 UNIT/1 ML VIAL SUB-Q SCH ×2 (11:12→22:15)
[2019-06-27] MEDS: POLYETHYLENE GLYCOL 3350 17 GM POWDER PO SCH (13:55)
--- NOTE | 2019-06-27 15:23 | Consultation ---
History of Present Illness Consult date: 06/27/19 Consult reason: known to you History of present illness: This is a 53-year old who was recently admitted to [facility] with acute CVA with right sided residual. During that admission, an echocardiogram was positive for PFO. Normal left ventricular ejection fraction 65%. Cardiology evaluated the patient during that hospital stay for suspected arrhythmias but atrial fibrillation was ruled out with recommendation for an outpatient Holter monitor. Patient is now admitted to this hospital for rehabilitation. A cardiac consultation has been requested to evaluation for arrhythmias. Patient denies chest pain, shortness of breath and palpitations. There is no ECG available for review. Telemetry strips shows a stable sinus rhythm. No evidence of arrhythmias. Past History Past Medical History: arrhythmia, anemia, diabetes, dialysis, ESRD, heart failure, hypertension, other (impaired vision (patient states that he needs glasses)) Past Surgical History: Other (left fistula, right Vas-Cath) Social history: lives with family (lives in an apartment with family), smoking (former), full code. denies: alcohol abuse (occasional alcohol use), prescription drug abuse, IV drug use Family history: diabetes, hypertension Medications and Allergies Allergies Allergy/AdvReac Type Severity Reaction Status Date / Time No Known Allergies Allergy Verified 10/01/13 00:30 Home Medications Medication Instructions Recorded Confirmed Last Taken Type Aspirin [Aspirin Enteric Coated] 81 mg PO DAILY #30 tablet. 10/03/13 06/24/19 06/23/19 09:00 Rx Famotidine [Pepcid] 10 mg PO BID #60 tablet 10/03/13 06/24/19 06/23/19 08:00 Rx amLODIPine [Norvasc] 10 mg PO QDAY #30 tablet 10/03/13 06/24/19 06/23/19 08:00 Rx glipiZIDE [Glucotrol] 5 mg PO BID #60 tablet 10/03/13 06/24/19 06/23/19 21:30 Rx Active Meds: Active Medications Acetaminophen (Tylenol) 650 mg PO Q6H PRN PRN Reason: Non Cardiac Pain or Temp>100.5 Acetaminophen/Hydrocodone Bitart ([place] 5/325) 1 each PO Q6H PRN PRN Reason: Pain, Moderate (4-6) Aspirin (Ecotrin) 325 mg PO QDAY SANTY Last Admin: 06/27/19 09:18 Dose: 325 mg Documented by: Atorvastatin Calcium (Lipitor) 40 mg PO QHS [facility] Last Admin: 06/26/19 22:21 Dose: 40 mg Documented by: Bisacodyl (Dulcolax) 10 mg ND QDAY PRN PRN Reason: Constipation Bisacodyl (Dulcolax) 5 mg PO QDAY PRN PRN Reason: Constipation Calcium Acetate (Phoslo) 667 mg PO TIDWM [facility] Last Admin: 06/27/19 13:55 Dose: 667 mg Documented by: Carvedilol (Coreg) 6.25 mg PO BID [facility] Last Admin: 06/27/19 10:28 Dose: Not Given Documented by: Dextrose (D50w (25gm) Syringe) 50 ml IV Q30MIN PRN PRN Reason: Hypoglycemia Last Admin: 06/25/19 16:18 Dose: 50 ml Documented by: Ferrous Sulfate (Feosol) 325 mg PO TID [facility] Last Admin: 06/27/19 13:55 Dose: 325 mg Documented by: Glipizide (Glucotrol) 2.5 mg PO BIDDIAB [facility] Last Admin: 06/27/19 09:20 Dose: 2.5 mg Documented by: Heparin Sodium (Porcine) (Heparin) 5,000 unit SUB-Q Q12HR [facility] Last Admin: 06/27/19 11:12 Dose: 5,000 unit Documented by: Hydralazine HCl (Apresoline) 10 mg IV Q4HR PRN PRN Reason: HTN SBP>160 Sodium Chloride (Nacl 0.9%) 100 mls @ 999 mls/hr IV ALLAN PRN PRN Reason: Hypotension Insulin Human Lispro (Humalog) 0 unit SUB-Q ACHS [facility]; Protocol Last Admin: 06/27/19 11:40 Dose: Not Given Documented by: Losartan Potassium (Cozaar) 50 mg PO QDAY [facility] Last Admin: 06/27/19 10:29 Dose: Not Given Documented by: Ondansetron HCl (Zofran Odt) 4 mg PO Q8H PRN PRN Reason: Nausea And Vomiting Polyethylene Glycol (Miralax 3350) 17 gm PO QDAY [facility] Last Admin: 06/27/19 13:55 Dose: 17 gm Documented by: Physical Examination Vital Signs Temp Pulse Resp BP Pulse Ox 99.3 F 79 18 112/73 100 06/23/19 16:45 06/23/19 16:45 06/23/19 16:45 06/23/19 16:45 06/23/19 16:45 General appearance: no acute distress HEENT: Positive: PERRL Neck: Positive: trachea midline Cardiac: Positive: Reg Rate and Rhythm Lungs: Positive: Normal Breath Sounds Neuro: Positive: Weakness (right sided) Extremities: Absent: edema Results 06/24/19 05:42 06/27/19 08:45 Comprehensive Metabolic Panel 06/27/19 Range/Units 08:45 Sodium 136 L (137-145) mmol/L Potassium 4.5 (3.6-5.0) mmol/L Chloride 93.7 L (98-107) mmol/L Carbon Dioxide 26 (22-30) mmol/L BUN 36 H (9-20) mg/dL Creatinine 9.3 H (0.8-1.5) mg/dL Glucose 153 H (75-100) mg/dL Calcium 9.0 (8.4-10.2) mg/dL Assessment and Plan Recent CVA ESRD on dialysis Hypertension Patent PFO Normal left ventricular ejection fraction 65% by echocardiogram at [facility] 06/2019. Recommendations: Obtain 12-lead ECG. Continue telemetry monitoring.
--- NOTE | 2019-06-28 08:03 | Progress Note ---
Subjective Date of service: 06/28/19 Principal diagnosis: CVA, left pontine and left cerebellum Interval history: 53-year-old male who presented to dialysis with several days worth of right-sided weakness and facial droop. He previously been told to go to the ER when the symptoms appeared however he neglected to do so. When reporting for dialysis he was refused dialysis and sent directly to the ER. 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 His primary issue is loss of balance and some weakness accompanied by slight disturbance with dysphagia and slurred speech. Echocardiogram showed an ejection fraction of approximate 65% with grade 1 diastolic dysfunction and a positive PFO without emboli noted. there were PACs noted on EKG with cardiology but A flutter was ruled out. He is recommended to have a Holter test performed with cardiology to look for paroxysmal atrial fibrillation. With that new knowledge we will place him on telemetry monitoring while he is here and also request a cardiology consult. He remains on hemodialysis on Wed/Wed/Wed and dialysis has been consulted and called. Overall he appears to be in fairly good condition all t hings considered. Hope to see a good return of function for him over the next several weeks in therapy. Unfortunately shortly after arriving the patient was found on the floor. I haven't discussed with him and need to call for assistance until we have cleared him to safely get up and move around on his own. He denies any pain or injuries from the fall. Fall precautions were ordered at time of admission and I have asked again that bed alarm and wheelchair alarms be placed. Patient is participating in therapy and making reasonable progress. Taking rest breaks as needed. +BM, small, not difficult to pass. Denies pain, palpitations, dyspnea, cough, N/V, or joint pain. Telemonitoring with no abnormal results so far. Blood glucose running low glipizide. Have are decreased the medication and initially saw an improvement however he may not be eating well on the hospital diet. Will stop the glipizide and just control with sliding scale for now and he may resume the glipizide once he returns home. Seen by cardiology yesterday and they will continue telemetry monitoring. They will sign off and reconsult if needed. EKG performed and patient is still in normal sinus rhythm. We'll continue electronics detail draftsperson until monitoring asks us to remove it. We will obtain EKG if patient has any signs of distress. He will need to follow up with cardiology as an outpatient for 30 day Holter monitoring test. Patient still has decreased ability to perform self care, ADLs, and safe mobility with increased loss of balance and remains appropriate for inpatient rehabilitation. We will continue to monitor the patient's blood pressure, diabetes control, and renal function while regaining function and ability to perform self care. All records, vitals, labs and medications were reviewed. No other issues per patient, nursing or therapy. Objective - Exam Narrative Exam: MUSCULOSKELETAL SPECIALTY EXAM CONSTITUTIONAL: Well developed, well nourished, appropriately groomed. LEFT hand dominant. RESPIRATORY: Clear to auscultation bilaterally, no increased work of breathing CARDIOVASCULAR: Regular Rate/ Rhythm, no swelling, edema or tenderness in BUE or BLE. All extremities warm. Left upper extremity thrill. Right-sided cath GI: + bowel sounds, soft, NTTP, nondistended. INTEGUMENTARY: Normal, no lesion, rash, masses or bruising noted in extremities. MUSCULOSKELETAL: BUE and BLE normal without defect, crepitus, subluxation, effusion, arthritic changes or TTP. R 4-/5 L 4+/5 ROM decreased on right Tone normal NEURO: Slight right facial droop Coordination decreased on the right Sensation intact in all extremities without extinction. No tremor noted in 4 extremities. Naming and repetition intact. Follows 2 step commands. Aphasia not appreciated Dysarthria slight Dysphagia advanced to regular thins after examination by SCIENCE PROFESSOR Neglect not appreciated POSTURE and GAIT: Sitting posture good. Balance impaired. Gait better with rolling walker, loss of balance. PSYCH: Alert, oriented x3, affect appears normal. Insight appears impaired with lack of appreciation for deficits but this is improving with education. - Constitutional Vitals: Vital Signs - 12hr 06/27/19 06/28/19 06/28/19 22:15 00:13 01:00 Temperature 37.1 C Pulse Rate 89 75 Respiratory 20 17 Rate Blood Pressure 131/68 109/64 Blood Pressure [Right] O2 Sat by Pulse 99 Oximetry 06/28/19 06/28/19 05:04 07:49 Temperature 36.7 C 36.8 C Pulse Rate 73 68 Respiratory 20 18 Rate Blood Pressure 116/59 Blood Pressure 122/68 [Right] O2 Sat by Pulse 99 99 Oximetry - Allied health notes Allied health notes reviewed: nursing, PT, ST, OT FIMS assessment as documented by PT/OT/ST: Social interaction/Memory/Problem solving Social Interaction FIM Score 5. Supervision (Needs supv. <10%. Needs encouragement to participate.) Memory FIM Score 5. Supervision (Needs cueing <10%, stressful/ unfamiliar situations.) Problem Solving FIM Score 5. Supervision (Needs cueing <10% to solve routine problems.) Transfers Mode of Locomotion: Wheelchair Bed/Chair/Wheelchair Transfers 4. Minimal Assistance (Patient = 75% or more. FIM Score Needs touching.) Locomotion- walk/wheelchair Ambulation Distance 40 Eating Eating FIM Score 5. Supervision/Set-Up (Needs help w/ containers, cutting meat, etc.) - Labs CBC & Chem 7: 06/24/19 05:42 06/27/19 08:45 Labs: Laboratory Results - last 72 hr 06/25/19 06/25/19 06/25/19 11:29 11:38 12:17 Sodium Potassium Chloride Carbon Dioxide Anion Gap BUN Creatinine Estimated GFR BUN/Creatinine Ratio Glucose POC Glucose 46 L 191 H Calcium Hepatitis A IgM Ab Non-reactive Hep Bs Antigen Non-reactive Hep B Core IgM Ab Non-reactive Hepatitis C Antibody Non-reactive 06/25/19 06/25/19 06/25/19 16:13 18:01 20:16 Sodium Potassium Chloride Carbon Dioxide Anion Gap BUN Creatinine Estimated GFR BUN/Creatinine Ratio Glucose POC Glucose 55 L 86 65 L Calcium Hepatitis A IgM Ab Hep Bs Antigen Hep B Core IgM Ab Hepatitis C Antibody 06/25/19 06/26/19 06/26/19 21:59 03:05 07:41 Sodium Potassium Chloride Carbon Dioxide Anion Gap BUN Creatinine Estimated GFR BUN/Creatinine Ratio Glucose POC Glucose 92 105 56 L Calcium Hepatitis A IgM Ab Hep Bs Antigen Hep B Core IgM Ab Hepatitis C Antibody 06/26/19 06/26/19 06/26/19 11:42 18:43 22:03 Sodium Potassium Chloride Carbon Dioxide Anion Gap BUN Creatinine Estimated GFR BUN/Creatinine Ratio Glucose POC Glucose 135 H 52 L 132 H Calcium Hepatitis A IgM Ab Hep Bs Antigen Hep B Core IgM Ab Hepatitis C Antibody 06/27/19 06/27/19 06/27/19 07:56 08:04 08:45 Sodium 136 L Potassium 4.5 Chloride 93.7 L Carbon Dioxide 26 Anion Gap 21 BUN 36 H Creatinine 9.3 H Estimated GFR 7 BUN/Creatinine Ratio 4 Glucose 153 H POC Glucose 50 L 45 L Calcium 9.0 Hepatitis A IgM Ab Hep Bs Antigen Hep B Core IgM Ab Hepatitis C Antibody 06/27/19 06/27/19 06/27/19 09:16 11:46 16:55 Sodium Potassium Chloride Carbon Dioxide Anion Gap BUN Creatinine Estimated GFR BUN/Creatinine Ratio Glucose POC Glucose 166 H 125 H 58 L Calcium Hepatitis A IgM Ab Hep Bs Antigen Hep B Core IgM Ab Hepatitis C Antibody 06/27/19 06/28/19 21:37 07:44 Sodium Potassium Chloride Carbon Dioxide Anion Gap BUN Creatinine Estimated GFR BUN/Creatinine Ratio Glucose POC Glucose 145 H 67 L Calcium Hepatitis A IgM Ab Hep Bs Antigen Hep B Core IgM Ab Hepatitis C Antibody Assessment and Plan CVA korey and cerebellum: Discussed with patient secondary stroke precautions and prognosis along with length of recovery. We'll continue to have conversation with the patient as we see him during his stay with us on rehabilitation. Continue secondary stroke precautions. Monitor for any neurological changes are need to reassess neuro status. Monitor for poststroke depression. End-stage renal disease on hemodialysis: Continue renal diet. Avoid nephrotoxic medications. Continue hemodialysis on Wednesday. Nephrology consulted. Diabetes: Continue carb controlled diet. Monitor blood glucose and treat with insulin as needed. DC glipizide and monitor on sliding scale Hypertension: Continue medications as ordered. Monitor blood pressure and adjust medications as needed for normotension. Will evaluate patient and see if we need to hold his blood pressure medications prior to dialysis days. Anemia: Chronic disease related. Continue iron and will order further workup as needed. Constipation: Continue medications and adjust as needed. PRN suppositories available. Scheduled miralax Possible paroxysmal atrial fibrillation noted at outside hospital: We'll place on telemetry monitoring and request cardiology consult. Patient also has a PFO. Will need outside cardiology follow-up Z73.6 ADL dysfunction: OT will work on improving ability to perform ADLs (including assistive devices) to increase independence and decrease caregiver burden and improve functional transfers and mobility training. R26.2 Difficulty walking: PT will work on gait training and proper use of assistive devices and advance as appropriate to use of stairs and outside am bulation on uneven surfaces. R26.81 Unsteadiness on feet: PT will work on improving static and dynamic sitting and standing balance as well as proper use of assistive devices to decrease risk of falls. R26.89 Abnormality of gait: PT will work to improve safety and efficiency of gait through neuromotor training and gait training along with instruction on proper use of assistive devices. M62.81 Muscle weakness: PT & OT will work on strengthening exercises to improve functional strength including mixture of closed and open kinetic chain exercises. R53.81 Debility: PT & OT will work on improving overall functional status to improve participation with ADLs, mobility and social involvement. R53.83 Fatigue: PT & OT will work on improving endurance through aerobic exercises and therapeutic activity while monitoring patients tolerance for activity and vital signs as needed. DVT ppx: heparin Pain: Continue physical modalities in therapy and pain medications as needed to achieve functional pain control. Sleep: Monitor and address as needed. Bowel: Monitor and address as needed. Appetite: Monitor and address as needed. Discharge planning: Pending therapy progress and care plan meeting. Will continue discussion with therapy team, SW, patient and family. Restrictions/ Precautions: Falls, neuro WB status: FWB Functional Hx: ADLs: Independent Cognition: Independent Mobility: No AD Barriers to Discharge: Decreased mobility and ability to perform self care, balance deficits, weakness Estimated Length of Stay: 1418 days Discharge Destination: Home with family
[2019-06-28] MEDS: INSULIN LISPRO 100 UNIT/ML SUB-Q SCH ×4 (09:00→21:57)
[2019-06-28] MEDS: FERROUS SULFATE 325 MG TAB PO SCH ×3 (09:24→21:56)
[2019-06-28] MEDS: ASPIRIN EC 325 MG TAB PO SCH (09:25)
[2019-06-28] MEDS: CALCIUM ACETATE 667 MG CAP PO SCH ×3 (09:25→18:56)
[2019-06-28] MEDS: POLYETHYLENE GLYCOL 3350 17 GM POWDER PO SCH (09:25)
[2019-06-28] MEDS: CARVEDILOL 6.25 MG TAB PO SCH ×2 (09:26→21:56)
[2019-06-28] MEDS: LOSARTAN 50 MG TAB PO SCH (09:26)
[2019-06-28] MEDS: HEPARIN 5,000 UNIT/1 ML VIAL SUB-Q SCH ×2 (12:45→21:55)
--- NOTE | 2019-06-28 16:54 | Progress Note ---
Assessment and Plan - Patient Problems (1) End stage renal disease Current Visit: Yes Status: Acute Plan to address problem: End stage renal disease : continue HD MWF right IJ perm cath has left arm AVF. (2) CVA (cerebral vascular accident) Current Visit: Yes Status: Acute Plan to address problem: acute CVA -currently undergoing rehab right sided weakness reviewed CT with left cerebellar and pontine infarct continue aspirin and statin (3) Diabetes Current Visit: No Status: Chronic Plan to address problem: DM type II ensure medicaton monitor fingersticks. (4) Hypertension Current Visit: No Status: Chronic Plan to address problem: HTN; controlled. continue current medications. Subjective Principal diagnosis: CVA, left pontine and left cerebellum Interval history: 53 year old with medical history of HTN , ESRD admitted with right sided weakness , gait instability found to have acute left cerebellar and pontine infarct. patient seen today I attest I saw the patient on hemodialysis at 4:50pm. no fevers or chills. denies any edema denies any shortness of breath reports weakness is much improved. Objective - Vital Signs Vital signs: Vital Signs - 12hr 06/28/19 06/28/19 06/28/19 05:04 07:49 09:26 Temperature 98.1 F 98.2 F Pulse Rate 73 68 74 Respiratory 20 18 Rate Blood Pressure 116/59 131/69 Blood Pressure 122/68 [Right] O2 Sat by Pulse 99 99 Oximetry 06/28/19 06/28/19 06/28/19 11:44 14:30 14:45 Temperature 97.9 F 98.1 F Pulse Rate 72 70 71 Respiratory 18 18 Rate Blood Pressure 130/67 135/66 Blood Pressure 104/54 [Right] O2 Sat by Pulse 99 Oximetry 06/28/19 06/28/19 06/28/19 15:00 15:15 15:30 Temperature Pulse Rate 71 71 68 Respiratory Rate Blood Pressure 137/61 120/63 133/66 Blood Pressure [Right] O2 Sat by Pulse Oximetry 06/28/19 06/28/19 06/28/19 15:45 16:00 16:15 Temperature Pulse Rate 69 59 L 69 Respiratory Rate Blood Pressure 142/67 149/116 138/59 Blood Pressure [Right] O2 Sat by Pulse Oximetry - General Appearance General appearance: well-developed, well-nourished EENT: ATNC, PERRL, mucous membranes moist Neck: no JVD Respiratory: Present: Clear to Ascultation Cardiology: regular, S1S2 Gastrointestinal: normal, normoactive bowel sounds Integumentary: no rash Neurologic: alert and oriented x3, CN 3-12 intact Psychiatric: mood/affect appropriate - Lab 06/24/19 05:42 06/27/19 08:45 Most recent lab results Calcium 9.0 mg/dL (8.4-10.2) 06/27/19 08:45 - Imaging Chest x-ray: image reviewed Medications & Allergies - Medications Allergies/Adverse Reactions: Allergies No Known Allergies Allergy (Verified 10/01/13 00:30) Home Medications: Home Medications Medication Instructions Recorded Confirmed Last Taken Type Aspirin [Aspirin Enteric Coated] 81 mg PO DAILY #30 tablet. 10/03/13 06/24/19 06/23/19 09:00 Rx Famotidine [Pepcid] 10 mg PO BID #60 tablet 10/03/13 06/24/19 06/23/19 08:00 Rx amLODIPine 10 mg PO QDAY #30 tablet 10/03/13 06/24/19 06/23/19 08:00 Rx glipiZIDE [Glucotrol] 5 mg PO BID #60 tablet 10/03/13 06/24/19 06/23/19 21:30 Rx Active Medications: Generic Name Dose Route Start Last Admin Trade Name Freq PRN Reason Stop Dose Admin Acetaminophen 650 mg 06/23/19 15:33 Tylenol PO Q6H PRN Non Cardiac Pain or Temp>100.5 Acetaminophen/Hydrocodone Bitart 1 each 06/23/19 18:00 [place] 5/325 PO Q6H PRN Pain, Moderate (4-6) Aspirin 325 mg 06/24/19 08:00 06/28/19 09:25 Ecotrin PO 325 mg QDAY SANTY Administration Atorvastatin Calcium 40 mg 06/23/19 21:00 06/27/19 22:18 Lipitor PO 40 mg QHS SANTY Administration Bisacodyl 10 mg 06/23/19 15:33 Dulcolax [place] QDAY PRN Constipation Bisacodyl 5 mg 06/24/19 12:04 Dulcolax PO QDAY PRN Constipation Calcium Acetate 667 mg 06/26/19 08:47 06/28/19 12:47 Phoslo PO 667 mg TIDWM SANTY Administration Carvedilol 6.25 mg 06/23/19 22:00 06/28/19 09:26 Coreg PO 6.25 mg BID SANTY Administration Dextrose 50 ml 06/23/19 15:22 06/25/19 16:18 D50w (25gm) Syringe IV 50 ml Q30MIN PRN Administration Hypoglycemia Ferrous Sulfate 325 mg 06/23/19 20:00 06/28/19 09:24 Feosol PO 325 mg TID SANTY Administration Heparin Sodium (Porcine) 5,000 unit 06/23/19 22:00 06/28/19 12:45 Heparin SUB-Q 5,000 unit Q12HR SANTY Administration Hydralazine HCl 10 mg 06/23/19 15:33 Apresoline IV Q4HR PRN HTN SBP>160 Sodium Chloride 100 mls @ 999 mls/hr 06/25/19 12:30 Nacl 0.9% IV ALLAN PRN Hypotension Insulin Human Lispro 0 unit 06/23/19 16:30 06/28/19 12:19 Humalog SUB-Q 2 unit ACHS SANTY Administration Protocol Losartan Potassium 50 mg 06/24/19 08:00 06/28/19 09:26 Cozaar PO 50 mg QDAY SANTY Administration Ondansetron HCl 4 mg 06/23/19 15:33 Zofran Odt PO Q8H PRN Nausea And Vomiting Polyethylene Glycol 17 gm 06/27/19 12:00 06/28/19 09:25 Miralax 3350 PO 17 gm QDAY SANTY Administration
[2019-06-29] MEDS: INSULIN LISPRO 100 UNIT/ML SUB-Q SCH ×5 (07:30→23:27)
--- NOTE | 2019-06-29 10:01 | Progress Note ---
Assessment and Plan - Patient Problems (1) End stage renal disease Current Visit: Yes Status: Acute Plan to address problem: End stage renal disease : continue HD MWF right IJ perm cath has left arm AVF. (2) CVA (cerebral vascular accident) Current Visit: Yes Status: Acute Plan to address problem: acute CVA -currently undergoing rehab right sided weakness reviewed CT with left cerebellar and pontine infarct continue aspirin and statin (3) Diabetes Current Visit: No Status: Chronic Plan to address problem: DM type II ensure medicaton monitor fingersticks. (4) Hypertension Current Visit: No Status: Chronic Plan to address problem: HTN; controlled. continue current medications. Subjective Principal diagnosis: CVA, left pontine and left cerebellum Interval history: 53 year old with medical history of HTN , ESRD admitted with right sided weakness , gait instability found to have acute left cerebellar and pontine infarct. patient seen today no fevers or chills. denies any edema denies any shortness of breath reports weakness is much improved. Objective - Vital Signs Vital signs: Vital Signs - 12hr 06/29/19 06/29/19 06/29/19 00:00 01:00 04:33 Temperature 98.3 F 98.2 F Pulse Rate 82 76 Respiratory 20 17 20 Rate Blood Pressure 105/59 111/62 O2 Sat by Pulse 97 99 Oximetry 06/29/19 07:12 Temperature 98.4 F Pulse Rate 79 Respiratory 18 Rate Blood Pressure 103/68 O2 Sat by Pulse 100 Oximetry - General Appearance General appearance: well-developed, well-nourished EENT: ATNC, PERRL, mucous membranes moist Neck: no JVD Respiratory: Present: Clear to Ascultation Cardiology: regular, S1S2 Gastrointestinal: normal, normoactive bowel sounds Integumentary: no rash Neurologic: alert and oriented x3 Musculoskeletal: deferred Psychiatric: mood/affect appropriate - Lab 06/24/19 05:42 06/27/19 08:45 Most recent lab results Calcium 9.0 mg/dL (8.4-10.2) 06/27/19 08:45 Medications & Allergies - Medications Allergies/Adverse Reactions: Allergies No Known Allergies Allergy (Verified 10/01/13 00:30) Home Medications: Home Medications Medication Instructions Recorded Confirmed Last Taken Type Aspirin [Aspirin Enteric Coated] 81 mg PO DAILY #30 tablet. 10/03/13 06/24/1906/23/19 09:00 Rx Famotidine [Pepcid] 10 mg PO BID #60 tablet 10/03/13 06/24/19 06/23/19 08:00 Rx amLODIPine 10 mg PO QDAY #30 tablet 10/03/13 06/24/19 06/23/19 08:00 Rx glipiZIDE [Glucotrol] 5 mg PO BID #60 tablet 10/03/13 06/24/19 06/23/19 21:30 Rx Active Medications: Generic Name Dose Route Start Last Admin Trade Name Freq PRN Reason Stop Dose Admin Acetaminophen 650 mg 06/23/19 15:33 Tylenol PO Q6H PRN Non Cardiac Pain or Temp>100.5 Acetaminophen/Hydrocodone Bitart 1 each 06/23/19 18:00 [place] 5/325 PO Q6H PRN Pain, Moderate (4-6) Aspirin 325 mg 06/24/19 08:00 06/28/19 09:25 Ecotrin PO 325 mg QDAY SANTY Administration Atorvastatin Calcium 40 mg 06/23/19 21:00 06/28/19 21:56 Lipitor PO 40 mg QHS SANTY Administration Bisacodyl 10 mg 06/23/19 15:33 Dulcolax [place] QDAY PRN Constipation Bisacodyl 5 mg 06/24/19 12:04 Dulcolax PO QDAY PRN Constipation Calcium Acetate 667 mg 06/26/19 08:47 06/28/19 18:56 Phoslo PO Not Given TIDWM SANTY Carvedilol 6.25 mg 06/23/19 22:00 06/28/19 21:56 Coreg PO 6.25 mg BID SANTY Administration Dextrose 50 ml 06/23/19 15:22 06/25/19 16:18 D50w (25gm) Syringe IV 50 ml Q30MIN PRN Administration Hypoglycemia Ferrous Sulfate 325 mg 06/23/19 20:00 06/28/19 21:56 Feosol PO 325 mg TID SANTY Administration Heparin Sodium (Porcine) 5,000 unit 06/23/19 22:00 06/28/19 21:55 Heparin SUB-Q 5,000 unit Q12HR SANTY Administration Hydralazine HCl 10 mg 06/23/19 15:33 Apresoline IV Q4HR PRN HTN SBP>160 Sodium Chloride 100 mls @ 999 mls/hr 06/25/19 12:30 Nacl 0.9% IV ALLAN PRN Hypotension Insulin Human Lispro 0 unit 06/23/19 16:30 06/28/19 21:57 Humalog SUB-Q 2 unit ACHS SANTY Administration Protocol Losartan Potassium 50 mg 06/24/19 08:00 06/28/19 09:26 Cozaar PO 50 mg QDAY SANTY Administration Ondansetron HCl 4 mg 06/23/19 15:33 Zofran Odt PO Q8H PRN Nausea And Vomiting Polyethylene Glycol 17 gm 06/27/19 12:00 06/28/19 09:25 Miralax 3350 PO 17 gm QDAY SANTY Administration
[2019-06-29] MEDS: POLYETHYLENE GLYCOL 3350 17 GM POWDER PO SCH (10:39)
[2019-06-29] MEDS: HEPARIN 5,000 UNIT/1 ML VIAL SUB-Q SCH ×2 (10:40→22:46)
[2019-06-29] MEDS: ASPIRIN EC 325 MG TAB PO SCH (10:40)
[2019-06-29] MEDS: CALCIUM ACETATE 667 MG CAP PO SCH ×3 (10:40→16:58)
[2019-06-29] MEDS: FERROUS SULFATE 325 MG TAB PO SCH ×3 (10:40→22:21)
[2019-06-29] MEDS: CARVEDILOL 6.25 MG TAB PO SCH ×2 (10:46→23:22)
[2019-06-29] MEDS: LOSARTAN 50 MG TAB PO SCH (10:46)
--- NOTE | 2019-06-29 10:56 | Progress Note ---
Subjective Date of service: 06/29/19 Principal diagnosis: CVA, left pontine and left cerebellum Interval history: 53-year-old male who presented to dialysis with several days worth of right-sided weakness and facial droop. He previously been told to go to the ER when the symptoms appeared however he neglected to do so. When reporting for dialysis he was refused dialysis and sent directly to the ER. 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 His primary issue is loss of balance and some weakness accompanied by slight disturbance with dysphagia and slurred speech. Echocardiogram showed an ejection fraction of approximate 65% with grade 1 diastolic dysfunction and a positive PFO without emboli noted. there were PACs noted on EKG with cardiology but A flutter was ruled out. He is recommended to have a Holter test performed with cardiology to look for paroxysmal atrial fibrillation. With that new knowledge we will place him on telemetry monitoring while he is here and also request a cardiology consult. He remains on hemodialysis on Wed/Wed/Wed and dialysis has been consulted and called. Overall he appears to be in fairly good condition all t hings considered. Hope to see a good return of function for him over the next several weeks in therapy. Unfortunately shortly after arriving the patient was found on the floor. I haven't discussed with him and need to call for assistance until we have cleared him to safely get up and move around on his own. He denies any pain or injuries from the fall. Fall precautions were ordered at time of admission and I have asked again that bed alarm and wheelchair alarms be placed. Patient is participating in therapy and making good progress. Taking rest breaks as needed. +BM. Denies pain, palpitations, dyspnea, cough, N/V, or joint pain. Telemonitoring with no abnormal results so far. Blood glucose somewhat better. Patient states he does not check GLU at home. Will give a script for glucometer and have DM training. Likely progress to cane in next few days. Patient still has decreased ability to perform self care, ADLs, and safe mobility with increased loss of balance and remains appropriate for inpatient rehabilitation. We will continue to monitor the patient's blood pressure, diabetes control, and renal function while regaining function and ability to perform self care. All records, vitals, labs and medications were reviewed. No other issues per patient, nursing or therapy. Objective - Exam Narrative Exam: MUSCULOSKELETAL SPECIALTY EXAM CONSTITUTIONAL: Well developed, well nourished, appropriately groomed. LEFT hand dominant. RESPIRATORY: Clear to auscultation bilaterally, no increased work of breathing CARDIOVASCULAR: Regular Rate/ Rhythm, no swelling, edema or tenderness in BUE or BLE. All extremities warm. Left upper extremity thrill. Right-sided cath GI: + bowel sounds, soft, NTTP, nondistended. INTEGUMENTARY: Normal, no lesion, rash, masses or bruising noted in extremities. MUSCULOSKELETAL: BUE and BLE normal without defect, crepitus, subluxation, effusion, arthritic changes or TTP. R 4-/5 L 4+/5 ROM decreased on right Tone normal NEURO: Slight right facial droop Coordination decreased on the right Sensation intact in all extremities without extinction. No tremor noted in 4 extremities. Naming and repetition intact. Follows 2 step commands. Aphasia not appreciated Dysarthria slight Dysphagia advanced to regular thins after examination by HEAD OF MARKETING Neglect not appreciated POSTURE and GAIT: Sitting posture good. Balance impaired. Gait better with rolling walker, some toe drag on R. PSYCH: Alert, oriented x3, affect appears normal. Insight appears impaired with lack of appreciation for deficits but this is improving with education. - Constitutional Vitals: Vital Signs - 12hr 06/29/19 06/29/19 06/29/19 00:00 01:00 04:33 Temperature 36.8 C 36.8 C Pulse Rate 82 76 Respiratory 20 17 20 Rate Blood Pressure 105/59 111/62 O2 Sat by Pulse 97 99 Oximetry 06/29/19 06/29/19 07:12 10:46 Temperature 36.9 C Pulse Rate 79 78 Respiratory 18 Rate Blood Pressure 103/68 103/61 O2 Sat by Pulse 100 Oximetry - Allied health notes Allied health notes reviewed: nursing, PT, ST, OT FIMS assessment as documented by PT/OT/ST: Social interaction/Memory/Problem solving Social Interaction FIM Score 7. Complete [place] (Interacts appropriately. Controls temper.) Memory FIM Score 4. Minimal Assistance (Recognizes and remembers 75-90%.) Problem Solving FIM Score 3. Moderate Assistance (Solves routine problems 50-74%.) Transfers Mode of Locomotion: Wheelchair Bed/Chair/Wheelchair Transfers 5. Supervision (Needs supv. or set-up for FIM Score sliding board, foot rests.) Locomotion- Stairs Device used on Stairs Handrail/s Number of Stairs Ascended/ 8 Descended Patient used handrail/support: Yes Stairs FIM Score 2. Maximal Assistance (Patient = 25% or more, 4- 6 stairs.) Locomotion- walk/wheelchair Most Frequent Mode of Wheelchair Locomotion: Ambulation Distance 53 Walking FIM Score 2. Maximal Assistance (Patient = 25% or more. Minimum of 50 ft.) Wheelchair Propulsion Distance 150 Wheelchair FIM Score 4. Minimal Assistance (Patient = 75% or more. Minimum of 150 ft.) Eating Eating FIM Score 5. Supervision/Set-Up (Needs help w/ containers, cutting meat, etc.) - Labs CBC & Chem 7: 06/24/19 05:42 06/27/19 08:45 Labs: Laboratory Results - last 72 hr 06/26/19 06/26/19 06/26/19 11:42 18:43 22:03 Sodium Potassium Chloride Carbon Dioxide Anion Gap BUN Creatinine Estimated GFR BUN/Creatinine Ratio Glucose POC Glucose 135 H 52 L 132 H Calcium 06/27/19 06/27/19 06/27/19 07:56 08:04 08:45 Sodium 136 L Potassium 4.5 Chloride 93.7 L Carbon Dioxide 26 Anion Gap 21 BUN 36 H Creatinine 9.3 H Estimated GFR 7 BUN/Creatinine Ratio 4 Glucose 153 H POC Glucose 50 L 45 L Calcium 9.0 06/27/19 06/27/19 06/27/19 09:16 11:46 16:55 Sodium Potassium Chloride Carbon Dioxide Anion Gap BUN Creatinine Estimated GFR BUN/Creatinine Ratio Glucose POC Glucose 166 H 125 H 58 L Calcium 06/27/19 06/28/19 06/28/19 21:37 07:44 11:52 Sodium Potassium Chloride Carbon Dioxide Anion Gap BUN Creatinine Estimated GFR BUN/Creatinine Ratio Glucose POC Glucose 145 H 67 L 155 H Calcium 06/28/19 06/29/19 21:55 07:23 Sodium Potassium Chloride Carbon Dioxide Anion Gap BUN Creatinine Estimated GFR BUN/Creatinine Ratio Glucose POC Glucose 195 H 104 Calcium Assessment and Plan CVA korey and cerebellum: Discussed with patient secondary stroke precautions and prognosis along with length of recovery. We'll continue to have conversation with the patient as we see him during his stay with us on rehabilitation. Continue secondary stroke precautions. Monitor for any neurological changes as needed to reassess neuro status. Monitor for poststroke depression. End-stage renal disease on hemodialysis: Continue renal diet. Avoid nephrotoxic medications. Continue hemodialysis on Wednesday. Nephrology consulted. Diabetes: Continue carb controlled diet. Monitor blood glucose and treat with insulin as needed. DC glipizide and monitor on sliding scale. DM training and Diet training. Glucometer Rx at discharge. Hypertension: Continue medications as ordered. Monitor blood pressure and adjust medications as needed for normotension. Will evaluate patient and see if we need to hold his blood pressure medications prior to dialysis days. Anemia: Chronic disease related. Continue iron and will order further workup as needed. Constipation: Continue medications and adjust as needed. PRN suppositories available. Scheduled miralax Possible paroxysmal atrial fibrillation noted at outside hospital: We'll place on telemetry monitoring and request cardiology consult. Patient also has a PFO. Will need outside cardiology follow-up Z73.6 ADL dysfunction: OT will work on improving ability to perform ADLs (including assistive devices) to increase independence and decrease caregiver burden and improve functional transfers and mobility training. R26.2 Difficulty walking: PT will work on gait training and proper use of assistive devices and advance as appropriate to use of stairs and outside ambulation on uneven surfaces. R26.81 Unsteadiness on feet: PT will work on improving static and dynamic sitting and standing balance as well as proper use of assistive devices to decrease risk of falls. R26.89 Abnormality of gait: PT will work to improve safety and efficiency of gait through neuromotor training and gait training along with instruction on proper use of assistive devices. M62.81 Muscle weakness: PT & OT will work on strengthening exercises to improve functional strength including mixture of closed and open kinetic chain exercises. R53.81 Debility: PT & OT will work on improving overall functional status to improve participation with ADLs, mobility and social involvement. R53.83 Fatigue: PT & OT will work on improving endurance through aerobic exercises and therapeutic activity while monitoring patients tolerance for activity and vital signs as needed. DVT ppx: heparin Pain: Continue physical modalities in therapy and pain medications as needed to achieve functional pain control. Sleep: Monitor and address as needed. Bowel: Monitor and address as needed. Appetite: Monitor and address as needed. Discharge planning: Pending therapy progress and care plan meeting. Will continue discussion with therapy team, SW, patient and family. Restrictions/ Precautions: Falls, neuro WB status: FWB Functional Hx: ADLs: Independent Cognition: Independent Mobility: No AD Barriers to Discharge: Decreased mobility and ability to perform self care, balance deficits, weakness Estimated Length of Stay: 1418 days Discharge Destination: Home with family
[2019-06-30] MEDS: INSULIN LISPRO 100 UNIT/ML SUB-Q SCH (07:11)
[2019-06-30] MEDS: CALCIUM ACETATE 667 MG CAP PO SCH ×2 (09:08→12:08)
[2019-06-30] MEDS: FERROUS SULFATE 325 MG TAB PO SCH ×2 (09:09→20:00)
[2019-06-30] MEDS: ASPIRIN EC 325 MG TAB PO SCH (11:09)
[2019-06-30] MEDS: POLYETHYLENE GLYCOL 3350 17 GM POWDER PO SCH (11:09)
[2019-06-30] MEDS: CARVEDILOL 6.25 MG TAB PO SCH ×2 (11:10→22:17)
[2019-06-30] MEDS: LOSARTAN 50 MG TAB PO SCH (11:10)
--- NOTE | 2019-06-30 11:38 | Progress Note ---
Subjective Date of service: 06/30/19 Principal diagnosis: CVA, left pontine and left cerebellum Interval history: 53-year-old male who presented to dialysis with several days worth of right-sided weakness and facial droop. He previously been told to go to the ER when the symptoms appeared however he neglected to do so. When reporting for dialysis he was refused dialysis and sent directly to the ER. 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 His primary issue is loss of balance and some weakness accompanied by slight disturbance with dysphagia and slurred speech. Echocardiogram showed an ejection fraction of approximate 65% with grade 1 diastolic dysfunction and a positive PFO without emboli noted. there were PACs noted on EKG with cardiology but A flutter was ruled out. He is recommended to have a Holter test performed with cardiology to look for paroxysmal atrial fibrillation. With that new knowledge we will place him on telemetry monitoring while he is here and also request a cardiology consult. He remains on hemodialysis on Wed/Wed/Wed and dialysis has been consulted and called. Overall he appears to be in fairly good condition all t hings considered. Hope to see a good return of function for him over the next several weeks in therapy. Unfortunately shortly after arriving the patient was found on the floor. I haven't discussed with him and need to call for assistance until we have cleared him to safely get up and move around on his own. He denies any pain or injuries from the fall. Fall precautions were ordered at time of admission and I have asked again that bed alarm and wheelchair alarms be placed. Patient is participating in therapy and making good progress. Taking rest breaks as needed. +BM. Denies pain, palpitations, dyspnea, cough, N/V, or joint pain. Telemonitoring with no abnormal results so far. Blood glucose better off of oral meds, will continue sliding scale coverage. Patient has requested double portions which is likely why a he was running low earlier. Will monitor and restart oral medications if needed. Have asked nursing to teach him how to check his blood glucose and use the glucometer. Working on walking with a cane, gait is very unsteady utilizing this but we should be able to improve that before discharge. Patient still having issues with decreased safety awareness and states that he took a shower by himself last night but did have enough insight to try to sit down when he started feeling dizzy. Reinforced with him to not attempt that again without assistance due to his increased risk for falls. Laying the risk and possible dangers associated with falling without a ssistance nearby.. Patient still has decreased ability to perform self care, ADLs, and safe mobility with increased loss of balance and remains appropriate for inpatient rehabilitation. We will continue to monitor the patient's blood pressure, diabetes control, and renal function while regaining function and ability to perform self care. All records, vitals, labs and medications were reviewed. No other issues per patient, nursing or therapy. Objective - Exam Narrative Exam: MUSCULOSKELETAL SPECIALTY EXAM CONSTITUTIONAL: Well developed, well nourished, appropriately groomed. LEFT hand dominant. RESPIRATORY: Clear to auscultation bilaterally, no increased work of breathing CARDIOVASCULAR: Regular Rate/ Rhythm, no swelling, edema or tenderness in BUE or BLE. All extremities warm. Left upper extremity thrill. Right-sided cath GI: + bowel sounds, soft, NTTP, nondistended. INTEGUMENTARY: Normal, no lesion, rash, masses or bruising noted in extremities. MUSCULOSKELETAL: BUE and BLE normal without defect, crepitus, subluxation, effusion, arthritic changes or TTP. R 4-/5 L 4+/5 ROM decreased on right Tone normal NEURO: Slight right facial droop Coordination decreased on the right Sensation intact in all extremities without extinction. No tremor noted in 4 extremities. Naming and repetition intact. Follows 2 step commands. Aphasia not appreciated Dysarthria slight Dysphagia advanced to regular thins after examination by SPORTS BETTING MANAGER Neglect not appreciated POSTURE and GAIT: Sitting posture good. Balance impaired. Gait better with rolling walker, some toe drag on R. PSYCH: Alert, oriented x3, affect appears normal. Insight appears impaired with lack of appreciation for deficits but this is improving with education. - Constitutional Vitals: Vital Signs - 12hr 06/30/19 06/30/19 06/30/19 00:13 04:47 07:17 Temperature 36.7 C 36.5 C 36.7 C Pulse Rate 80 75 77 Respiratory 17 17 18 Rate Blood Pressure 126/78 112/63 135/72 O2 Sat by Pulse 98 99 99 Oximetry - Allied health notes Allied health notes reviewed: nursing, PT, ST, OT FIMS assessment as documented by PT/OT/ST: Social interaction/Memory/Problem solving Social Interaction FIM Score 7. Complete [place] (Interacts appropriately. Controls temper.) Memory FIM Score 4. Minimal Assistance (Recognizes and remembers 75-90%.) Problem Solving FIM Score 3. Moderate Assistance (Solves routine problems 50-74%.) Transfers Mode of Locomotion: Wheelchair Bed/Chair/Wheelchair Transfers 5. Supervision (Needs supv. or set-up for FIM Score sliding board, foot rests.) Locomotion- Stairs Device used on Stairs Handrail/s Number of Stairs Ascended/ 8 Descended Patient used handrail/support: Yes Stairs FIM Score 2. Maximal Assistance (Patient = 25% or more, 4- 6 stairs.) Locomotion- walk/wheelchair Most Frequent Mode of Wheelchair Locomotion: Ambulation Distance 53 Walking FIM Score 2. Maximal Assistance (Patient = 25% or more. Minimum of 50 ft.) Wheelchair Propulsion Distance 150 Wheelchair FIM Score 4. Minimal Assistance (Patient = 75% or more. Minimum of 150 ft.) Eating Eating FIM Score 5. Supervision/Set-Up (Needs help w/ containers, cutting meat, etc.) Dressing-Upper body Patient retrieves clothing No items: Upper Body Dressing FIM Score 5. Supv./Set-Up ([place] sets out clothes or applies pros./orth.) Dressing-lower body Patient retrieves clothing No items: Lower Body Dressing FIM Score 5. Supv./Set-Up ([place] sets out clothes or applies pros./orth.) - Labs CBC & Chem 7: 06/24/19 05:42 06/27/19 08:45 Labs: Laboratory Results - last 72 hr 06/27/19 06/27/19 06/27/19 11:46 16:55 21:37 POC Glucose 125 H 58 L 145 H 06/28/19 06/28/19 06/28/19 07:44 11:52 21:55 POC Glucose 67 L 155 H 195 H 06/29/19 06/29/19 06/29/19 07:23 11:22 16:06 POC Glucose 104 168 H 145 H 06/29/19 06/30/19 20:02 07:25 POC Glucose 177 H 94 Assessment and Plan CVA korey and cerebellum: Discussed with patient secondary stroke precautions and prognosis along with length of recovery. We'll continue to have conversation with the patient as we see him during his stay with us on rehabilitation. Continue secondary stroke precautions. Monitor for any neurological changes as needed to reassess neuro status. Monitor for poststroke depression. End-stage renal disease on hemodialysis: Continue renal diet. Avoid nephrotoxic medications. Continue hemodialysis on Wednesday. Nephrology consulted. Diabetes: Continue carb controlled diet. Monitor blood glucose and treat with insulin as needed. DC glipizide and monitor on sliding scale. DM training and Diet training. Glucometer Rx at discharge. Hypertension: Continue medications as ordered. Monitor blood pressure and adjust medications as needed for normotension. Will evaluate patient and see if we need to hold his blood pressure medications prior to dialysis days. Anemia: Chronic disease related. Continue iron and will order further workup as needed. Constipation: Continue medications and adjust as needed. PRN suppositories available. Scheduled miralax Possible paroxysmal atrial fibrillation noted at outside hospital: We'll place on telemetry monitoring and request cardiology consult. Patient also has a PFO. Will need outside cardiology follow-up Z73.6 ADL dysfunction: OT will work on improving ability to perform ADLs (including assistive devices) to increase independence and decrease caregiver burden and improve functional transfers and mobility training. R26.2 Difficulty walking: PT will work on gait training and proper use of assistive devices and advance as appropriate to use of stairs and outside ambulation on uneven surfaces. R26.81 Unsteadiness on feet: PT will work on improving static and dynamic sitting and standing balance as well as proper use of assistive devices to decrease risk of falls. R26.89 Abnormality of gait: PT will work to improve safety and efficiency of gait through neuromotor training and gait training along with instruction on proper use of assistive devices. M62.81 Muscle weakness: PT & OT will work on strengthening exercises to improve functional strength including mixture of closed and open kinetic chain exercises. R53.81 Debility: PT & OT will work on improving overall functional status to improve participation with ADLs, mobility and social involvement. R53.83 Fatigue: PT & OT will work on improving endurance through aerobic exercises and therapeutic activity while monitoring patients tolerance for activity and vital signs as needed. DVT ppx: heparin Pain: Continue physical modalities in therapy and pain medications as needed to achieve functional pain control. Sleep: Monitor and address as needed. Bowel: Monitor and address as needed. Appetite: Monitor and address as needed. Discharge planning: Pending therapy progress and care plan meeting. Will continue discussion with therapy team, SW, patient and family. Plan to discharge next Wednesday unless condition changes. Restrictions/ Precautions: Falls, neuro WB status: FWB Functional Hx: ADLs: Independent Cognition: Independent Mobility: No AD Barriers to Discharge: Decreased mobility and ability to perform self care, b alance deficits, weakness Estimated Length of Stay: 1418 days Discharge Destination: Home with family
[2019-06-30] MEDS: HEPARIN 5,000 UNIT/1 ML VIAL SUB-Q SCH ×2 (12:09→22:14)
--- NOTE | 2019-06-30 16:38 | Progress Note ---
Assessment and Plan # End stage renal disease - continue HD MWF - right IJ perm cath - has left arm AVF. - renally dose medications # CVA (cerebral vascular accident) acute CVA, currently undergoing rehab with right sided weakness. CT with left cerebellar and pontine infarct - continue aspirin and statin # Diabetes - monitor fingersticks. - management per primary team # Hypertension controlled, continue current medications. Subjective Date of service: 06/30/19 Principal diagnosis: CVA, left pontine and left cerebellum Interval history: no acute events noted overnight. seen on HD- doing well without acute issues. No cramping, lightheadedness, dizziness noted. No chest pain. Objective - Exam Narrative Exam: General appearance: well-developed, well-nourished EENT: ATNC, PERRL, mucous membranes moist Neck: no JVD Respiratory: Present: Clear to Auscultation Cardiology: regular, S1S2 Gastrointestinal: normal, normoactive bowel sounds Integumentary: no rash Neurologic: alert and oriented x3 Musculoskeletal: deferred Psychiatric: mood/affect appropriate - Vital Signs Vital signs: Vital Signs - 12hr 06/30/19 06/30/19 06/30/19 04:47 07:17 12:00 Temperature 97.7 F 98.0 F 97 F L Pulse Rate 75 77 100 H Respiratory 17 18 18 Rate Blood Pressure 112/63 135/72 Blood Pressure 125/61 [Right] O2 Sat by Pulse 99 99 100 Oximetry 06/30/19 06/30/19 06/30/19 12:57 13:02 13:15 Temperature 98.7 F Pulse Rate 83 82 80 Respiratory 18 Rate Blood Pressure 135/57 150/39 132/56 Blood Pressure [Right] O2 Sat by Pulse Oximetry 06/30/19 06/30/19 06/30/19 13:30 13:45 14:00 Temperature Pulse Rate 75 77 77 Respiratory Rate Blood Pressure 143/51 133/52 138/44 Blood Pressure [Right] O2 Sat by Pulse Oximetry 06/30/19 06/30/19 06/30/19 14:15 14:30 14:45 Temperature Pulse Rate 78 78 78 Respiratory Rate Blood Pressure 132/37 141/55 122/61 Blood Pressure [Right] O2 Sat by Pulse Oximetry 06/30/19 06/30/19 06/30/19 15:00 15:15 15:30 Temperature Pulse Rate 79 88 88 Respiratory Rate Blood Pressure 118/62 116/62 114/52 Blood Pressure [Right] O2 Sat by Pulse Oximetry 06/30/19 06/30/19 06/30/19 15:45 16:00 16:15 Temperature Pulse Rate 89 87 91 H Respiratory Rate Blood Pressure 154/89 116/48 115/58 Blood Pressure [Right] O2 Sat by Pulse Oximetry - Lab 06/24/19 05:42 06/27/19 08:45 Most recent lab results Calcium 9.0 mg/dL (8.4-10.2) 06/27/19 08:45 Medications & Allergies - Medications Allergies/Adverse Reactions: Allergies No Known Allergies Allergy (Verified 10/01/13 00:30) Home Medications: Home Medications Medication Instructions Recorded Confirmed Last Taken Type Aspirin [Aspirin Enteric Coated] 81 mg PO DAILY #30 tablet. 10/03/13 06/24/19 06/23/19 09:00 Rx Famotidine [Pepcid] 10 mg PO BID #60 tablet 10/03/13 06/24/19 06/23/19 08:00 Rx amLODIPine 10 mg PO QDAY #30 tablet 10/03/13 06/24/19 06/23/19 08:00 Rx glipiZIDE [Glucotrol] 5 mg PO BID #60 tablet 10/03/13 06/24/19 06/23/19 21:30 Rx Active Medications: Generic Name Dose Route Start Last Admin Trade Name Freq PRN Reason Stop Dose Admin Acetaminophen 650 mg 06/23/19 15:33 Tylenol PO Q6H PRN Non Cardiac Pain or Temp>100.5 Acetaminophen/Hydrocodone Bitart 1 each 06/23/19 18:00 [place] 5/325 PO Q6H PRN Pain, Moderate (4-6) Aspirin 325 mg 06/24/19 08:00 06/30/19 11:09 Ecotrin PO 325 mg QDAY SANTY Administration Atorvastatin Calcium 40 mg 06/23/19 21:00 06/29/19 22:21 Lipitor PO 40 mg QHS SANTY Administration Bisacodyl 10 mg 06/23/19 15:33 Dulcolax ND QDAY PRN Constipation Bisacodyl 5 mg 06/24/19 12:04 Dulcolax PO QDAY PRN Constipation Calcium Acetate 667 mg 06/26/19 08:47 06/30/19 12:08 Phoslo PO 667 mg TIDWM SANTY Administration Carvedilol 6.25 mg 06/23/19 22:00 06/30/19 11:10 Coreg PO 6.25 mg BID SANTY Administration Dextrose 50 ml 06/23/19 15:22 06/25/19 16:18 D50w (25gm) Syringe IV 50 ml Q30MIN PRN Administration Hypoglycemia Ferrous Sulfate 325 mg 06/23/19 20:00 06/30/19 09:09 Feosol PO 325 mg TID SANTY Administration Heparin Sodium (Porcine) 5,000 unit 06/23/19 22:00 06/30/19 12:09 Heparin SUB-Q 5,000 unit Q12HR SANTY Administration Hydralazine HCl 10 mg 06/23/19 15:33 Apresoline IV Q4HR PRN HTN SBP>160 Sodium Chloride 100 mls @ 999 mls/hr 06/25/19 12:30 Nacl 0.9% IV ALLAN PRN Hypotension Insulin Human Lispro 0 unit 06/23/19 16:30 06/30/19 07:11 Humalog SUB-Q Not Given ACHS [facility] Protocol Losartan Potassium 50 mg 06/24/19 08:00 06/30/19 11:10 Cozaar PO 50 mg QDAY SANTY Administration Ondansetron HCl 4 mg 06/23/19 15:33 Zofran Odt PO Q8H PRN Nausea And Vomiting Polyethylene Glycol 17 gm 06/27/19 12:00 06/30/19 11:09 Miralax 3350 PO 17 gm QDAY SANTY Administration
[2019-07-01] MEDS: CALCIUM ACETATE 667 MG CAP PO SCH ×3 (08:57→17:43)
[2019-07-01] MEDS: HEPARIN 5,000 UNIT/1 ML VIAL SUB-Q SCH ×3 (08:58→21:58)
[2019-07-01] MEDS: ASPIRIN EC 325 MG TAB PO SCH (08:58)
[2019-07-01] MEDS: FERROUS SULFATE 325 MG TAB PO SCH ×3 (08:58→21:59)
[2019-07-01] MEDS: INSULIN LISPRO 100 UNIT/ML SUB-Q SCH ×4 (08:58→22:15)
[2019-07-01] MEDS: LOSARTAN 50 MG TAB PO SCH (08:59)
[2019-07-01] MEDS: CARVEDILOL 6.25 MG TAB PO SCH ×2 (08:59→22:01)
[2019-07-01] MEDS: POLYETHYLENE GLYCOL 3350 17 GM POWDER PO SCH (09:08)
--- NOTE | 2019-07-01 18:12 | Progress Note ---
Assessment and Plan # End stage renal disease - continue HD MWF, next due 07/03 - right IJ perm cath - has left arm AVF. - renally dose medications # CVA (cerebral vascular accident) acute CVA, currently undergoing rehab with right sided weakness. CT with left cerebellar and pontine infarct - continue aspirin and statin # Diabetes - monitor fingersticks. - management per primary team # Hypertension - controlled, continue current medications. Subjective Date of service: 07/01/19 Principal diagnosis: CVA, left pontine and left cerebellum Interval history: no acute events noted overnight. No cramping, lightheadedness, dizziness noted with HD. No chest pain. Objective - Exam Narrative Exam: General appearance: well-developed, well-nourished EENT: ATNC, PERRL, mucous membranes moist Neck: no JVD Respiratory: Present: Clear to Auscultation Cardiology: regular, S1S2 Gastrointestinal: normal, normoactive bowel sounds Integumentary: no rash Neurologic: alert and oriented x3 Musculoskeletal: deferred Psychiatric: mood/affect appropriate - Vital Signs Vital signs: Vital Signs - 12hr 07/01/19 07/01/19 07/01/19 08:17 08:59 12:03 Temperature 97.6 F 97.8 F Pulse Rate 83 83 78 Respiratory 20 18 Rate Blood Pressure 102/67 114/70 Blood Pressure 102/67 [Right] O2 Sat by Pulse 99 99 Oximetry 07/01/19 07/01/19 14:28 16:33 Temperature 97.8 F 99.0 F Pulse Rate 80 73 Respiratory 18 18 Rate Blood Pressure 108/71 Blood Pressure 114/70 [Right] O2 Sat by Pulse 99 100 Oximetry - Lab 06/24/19 05:42 06/27/19 08:45 Most recent lab results Calcium 9.0 mg/dL (8.4-10.2) 06/27/19 08:45 Medications & Allergies - Medications Allergies/Adverse Reactions: Allergies No Known Allergies Allergy (Verified 10/01/13 00:30) Home Medications: Home Medications Medication Instructions Recorded Confirmed Last Taken Type Aspirin [Aspirin Enteric Coated] 81 mg PO DAILY #30 tablet. 10/03/13 06/24/19 06/23/19 09:00 Rx Famotidine [Pepcid] 10 mg PO BID #60 tablet 10/03/13 06/24/19 06/23/19 08:00 Rx amLODIPine 10 mg PO QDAY #30 tablet 10/03/13 06/24/19 06/23/19 08:00 Rx glipiZIDE [Glucotrol] 5 mg PO BID #60 tablet 10/03/13 06/24/19 06/23/19 21:30 Rx Active Medications: Generic Name Dose Route Start Last Admin Trade Name Freq PRN Reason Stop Dose Admin Acetaminophen 650 mg 06/23/19 15:33 Tylenol PO Q6H PRN Non Cardiac Pain or Temp>100.5 Acetaminophen/Hydrocodone Bitart 1 each 06/23/19 18:00 [place] 5/325 PO Q6H PRN Pain, Moderate (4-6) Aspirin 325 mg 06/24/19 08:00 07/01/19 08:58 Ecotrin PO 325 mg QDAY SANTY Administration Atorvastatin Calcium 40 mg 06/23/19 21:00 06/30/19 21:00 Lipitor PO 40 mg QHS SANTY Administration Bisacodyl 10 mg 06/23/19 15:33 Dulcolax [place] QDAY PRN Constipation Bisacodyl 5 mg 06/24/19 12:04 Dulcolax PO QDAY PRN Constipation Calcium Acetate 667 mg 06/26/19 08:47 07/01/19 17:43 Phoslo PO 667 mg TIDWM SANTY Administration Carvedilol 6.25 mg 06/23/19 22:00 07/01/19 08:59 Coreg PO Not Given BID SANTY Dextrose 50 ml 06/23/19 15:22 06/25/19 16:18 D50w (25gm) Syringe IV 50 ml Q30MIN PRN Administration Hypoglycemia Ferrous Sulfate 325 mg 06/23/19 20:00 07/01/19 14:21 Feosol PO 325 mg TID SANTY Administration Heparin Sodium (Porcine) 5,000 unit 06/23/19 22:00 07/01/19 09:09 Heparin SUB-Q Not Given Q12HR SANTY Hydralazine HCl 10 mg 06/23/19 15:33 Apresoline IV Q4HR PRN HTN SBP>160 Sodium Chloride 100 mls @ 999 mls/hr 06/25/19 12:30 Nacl 0.9% IV ALLAN PRN Hypotension Insulin Human Lispro 0 unit 06/23/19 16:30 07/01/19 16:49 Humalog SUB-Q Not Given ACHS SANTY Protocol Losartan Potassium 50 mg 06/24/19 08:00 07/01/19 08:59 Cozaar PO Not Given QDAY SANTY Ondansetron HCl 4 mg 06/23/19 15:33 Zofran Odt PO Q8H PRN Nausea And Vomiting Polyethylene Glycol 17 gm 06/27/19 12:00 07/01/19 09:08 Miralax 3350 PO Not Given QDAY SANTY
[2019-07-02] MEDS: INSULIN LISPRO 100 UNIT/ML SUB-Q SCH ×4 (09:14→22:56)
[2019-07-02] MEDS: ASPIRIN EC 325 MG TAB PO SCH (09:24)
[2019-07-02] MEDS: CARVEDILOL 6.25 MG TAB PO SCH ×2 (09:24→22:53)
[2019-07-02] MEDS: CALCIUM ACETATE 667 MG CAP PO SCH ×3 (09:24→16:50)
[2019-07-02] MEDS: LOSARTAN 50 MG TAB PO SCH (09:24)
[2019-07-02] MEDS: FERROUS SULFATE 325 MG TAB PO SCH ×4 (09:25→22:47)
[2019-07-02] MEDS: POLYETHYLENE GLYCOL 3350 17 GM POWDER PO SCH (09:25)
[2019-07-02] MEDS: HEPARIN 5,000 UNIT/1 ML VIAL SUB-Q SCH ×2 (09:31→22:47)
--- NOTE | 2019-07-02 13:15 | Progress Note ---
Assessment and Plan # End stage renal disease - continue HD MWF, next due 07/03 - right IJ perm cath - has left arm AVF. - renally dose medications # CVA (cerebral vascular accident) acute CVA, currently undergoing rehab with right sided weakness. CT with left cerebellar and pontine infarct - continue aspirin and statin # Diabetes - monitor fingersticks. - management per primary team # Hypertension - controlled, continue current medications. Subjective Date of service: 07/02/19 Principal diagnosis: CVA, left pontine and left cerebellum Interval history: no acute events noted overnight. No cramping, lightheadedness, dizziness noted with HD. No chest pain. Eating lunch. Objective - Exam Narrative Exam: General appearance: well-developed, well-nourished EENT: ATNC, PERRL, mucous membranes moist Neck: no JVD Respiratory: Present: Clear to Auscultation Cardiology: regular, S1S2 Gastrointestinal: normal, normoactive bowel sounds Integumentary: no rash Neurologic: alert and oriented x3 Musculoskeletal: deferred Psychiatric: mood/affect appropriate - Vital Signs Vital signs: Vital Signs - 12hr 07/02/19 07/02/19 07/02/19 05:36 08:26 09:24 Temperature 98.0 F 97.6 F Pulse Rate 79 73 73 Respiratory 18 18 Rate Blood Pressure 112/60 Blood Pressure 119/71 112/60 [Right] O2 Sat by Pulse 97 96 Oximetry 07/02/19 12:35 Temperature 97.7 F Pulse Rate 74 Respiratory 18 Rate Blood Pressure Blood Pressure 113/61 [Right] O2 Sat by Pulse 100 Oximetry - Lab 06/24/19 05:42 06/27/19 08:45 Most recent lab results Calcium 9.0 mg/dL (8.4-10.2) 06/27/19 08:45 Medications & Allergies - Medications Allergies/Adverse Reactions: Allergies No Known Allergies Allergy (Verified 10/01/13 00:30) Home Medications: Home Medications Medication Instructions Recorded Confirmed Last Taken Type Aspirin [Aspirin Enteric Coated] 81 mg PO DAILY #30 tablet. 10/03/13 06/24/19 06/23/19 09:00 Rx Famotidine [Pepcid] 10 mg PO BID #60 tablet 10/03/13 06/24/19 06/23/19 08:00 Rx amLODIPine 10 mg PO QDAY #30 tablet 10/03/13 06/24/19 06/23/19 08:00 Rx glipiZIDE [Glucotrol] 5 mg PO BID #60 tablet 10/03/13 06/24/19 06/23/19 21:30 Rx Active Medications: Generic Name Dose Route Start Last Admin Trade Name Freq PRN Reason Stop Dose Admin Acetaminophen 650 mg 06/23/19 15:33 Tylenol PO Q6H PRN Non Cardiac Pain or Temp>100.5 Acetaminophen/Hydrocodone Bitart 1 each 06/23/19 18:00 [place] 5/325 PO Q6H PRN Pain, Moderate (4-6) Aspirin 325 mg 06/24/19 08:00 07/02/19 09:24 Ecotrin PO 325 mg QDAY SANTY Administration Atorvastatin Calcium 40 mg 06/23/19 21:00 07/01/19 22:00 Lipitor PO 40 mg QHS SANTY Administration Bisacodyl 10 mg 06/23/19 15:[address] QDAY PRN Constipation Bisacodyl 5 mg 06/24/19 12:04 Dulcolax PO QDAY PRN Constipation Calcium Acetate 667 mg 06/26/19 08:47 07/02/19 13:01 Phoslo PO 667 mg TIDWM SANTY Administration Carvedilol 6.25 mg 06/23/19 22:00 07/02/19 09:24 Coreg PO 6.25 mg BID SANTY Administration Dextrose 50 ml 06/23/19 15:22 06/25/19 16:18 D50w (25gm) Syringe IV 50 ml Q30MIN PRN Administration Hypoglycemia Ferrous Sulfate 325 mg 06/23/19 20:00 07/02/19 13:00 Feosol PO 325 mg TID SANTY Administration Heparin Sodium (Porcine) 5,000 unit 06/23/19 22:00 07/02/19 09:31 Heparin SUB-Q 5,000 unit Q12HR SANTY Administration Hydralazine HCl 10 mg 06/23/19 15:33 Apresoline IV Q4HR PRN HTN SBP>160 Sodium Chloride 100 mls @ 999 mls/hr 06/25/19 12:30 Nacl 0.9% IV ALLAN PRN Hypotension Insulin Human Lispro 0 unit 06/23/19 16:30 07/02/19 12:30 Humalog SUB-Q Not Given ACHS SANTY Protocol Losartan Potassium 50 mg 06/24/19 08:00 07/02/19 09:24 Cozaar PO 50 mg QDAY SANTY Administration Ondansetron HCl 4 mg 06/23/19 15:33 Zofran Odt PO Q8H PRN Nausea And Vomiting Polyethylene Glycol 17 gm 06/27/19 12:00 07/02/19 09:25 Miralax 3350 PO 17 gm QDAY SANTY Administration
[2019-07-03] MEDS: INSULIN LISPRO 100 UNIT/ML SUB-Q SCH ×4 (07:54→22:38)
[2019-07-03] MEDS: LOSARTAN 50 MG TAB PO SCH (08:09)
[2019-07-03] MEDS: CALCIUM ACETATE 667 MG CAP PO SCH ×4 (08:09→19:06)
[2019-07-03] MEDS: FERROUS SULFATE 325 MG TAB PO SCH ×3 (08:09→21:20)
[2019-07-03] MEDS: ASPIRIN EC 325 MG TAB PO SCH (08:09)
[2019-07-03] MEDS: CARVEDILOL 6.25 MG TAB PO SCH ×2 (08:10→21:29)
[2019-07-03] MEDS: glipiZIDE 5 MG TAB PO SCH (08:11)
[2019-07-03] MEDS: POLYETHYLENE GLYCOL 3350 17 GM POWDER PO SCH (08:14)
[2019-07-03] MEDS: HEPARIN 5,000 UNIT/1 ML VIAL SUB-Q SCH ×2 (10:12→21:29)
--- NOTE | 2019-07-03 11:00 | Progress Note ---
Subjective Date of service: 07/03/19 Principal diagnosis: CVA, left pontine and left cerebellum Interval history: 53-year-old male who presented to dialysis with several days worth of right-sided weakness and facial droop. He previously been told to go to the ER when the symptoms appeared however he neglected to do so. When reporting for dialysis he was refused dialysis and sent directly to the ER. 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 His primary issue is loss of balance and some weakness accompanied by slight disturbance with dysphagia and slurred speech. Echocardiogram showed an ejection fraction of approximate 65% with grade 1 diastolic dysfunction and a positive PFO without emboli noted. there were PACs noted on EKG with cardiology but A flutter was ruled out. He is recommended to have a Holter test performed with cardiology to look for paroxysmal atrial fibrillation. With that new knowledge we will place him on telemetry monitoring while he is here and also request a cardiology consult. He remains on hemodialysis on Wed/Wed/Wed and dialysis has been consulted and called. Overall he appears to be in fairly good condition all t hings considered. Hope to see a good return of function for him over the next several weeks in therapy. Unfortunately shortly after arriving the patient was found on the floor. I haven't discussed with him and need to call for assistance until we have cleared him to safely get up and move around on his own. He denies any pain or injuries from the fall. Fall precautions were ordered at time of admission and I have asked again that bed alarm and wheelchair alarms be placed. Patient is participating in therapy and making good progress. Taking rest breaks as needed. +BM. Denies pain, palpitations, dyspnea, cough, N/V, or joint pain. Telemonitoring with no abnormal results so far. Patient states that his aunt this weekend. He is requesting to not bothered today. Noted over the weekend that his blood sugars have been elevated since he started eating double portions. Have restarted low-dose glipizide and will continue to monitor blood sugar. Patient still has decreased ability to perform self care, ADLs, and safe mobility with increased loss of balance and remains appropriate for inpatient rehabilitation. We will continue to monitor the patient's blood pressure, diabetes control, and renal function while regaining function and ability to perform self care. All records, vitals, labs and medications were reviewed. No other issues per patient, nursing or therapy. Objective - Exam Narrative Exam: MUSCULOSKELETAL SPECIALTY EXAM CONSTITUTIONAL: Well developed, well nourished, appropriately groomed. LEFT hand dominant. RESPIRATORY: Clear to auscultation bilaterally, no increased work of breathing CARDIOVASCULAR: Regular Rate/ Rhythm, no swelling, edema or tenderness in BUE or BLE. All extremities warm. Left upper extremity thrill. Right-sided cath GI: + bowel sounds, soft, NTTP, nondistended. INTEGUMENTARY: Normal, no lesion, rash, masses or bruising noted in extremities. MUSCULOSKELETAL: BUE and BLE normal without defect, crepitus, subluxation, effusion, arthritic changes or TTP. R 4-/5 L 4+/5 ROM decreased on right Tone normal NEURO: Slight right facial droop Coordination decreased on the right Sensation intact in all extremities without extinction. No tremor noted in 4 extremities. Naming and repetition intact. Follows 2 step commands. Aphasia not appreciated Dysarthria slight Dysphagia advanced to regular thins after examination by SOAP [employer]ESS [employer]ER Neglect not appreciated POSTURE and GAIT: Sitting posture good. Balance impaired. Gait better with rolling walker, some toe drag on R. PSYCH: Alert, oriented x3, affect appears normal. Insight appears impaired with lack of appreciation for deficits but this is improving with education. - Constitutional Vitals: Vital Signs - 12hr 07/02/19 07/03/19 07/03/19 23:44 05:02 07:26 Temperature 36.4 C L 36.9 C 36.1 C L Pulse Rate 73 72 73 Respiratory 18 18 20 Rate Blood Pressure 123/63 138/74 Blood Pressure 124/61 [Right] O2 Sat by Pulse 99 95 100 Oximetry 07/03/19 07/03/19 08:09 08:10 Temperature Pulse Rate 73 73 Respiratory Rate Blood Pressure 138/74 138/74 Blood Pressure [Right] O2 Sat by Pulse Oximetry - Allied health notes Allied health notes reviewed: nursing, PT, ST, OT FIMS assessment as documented by PT/OT/ST: Grooming Patient cleans teeth/dentures: Yes Patient mccabe/brushes hair: Yes Patient washes, rinses and Yes dries face: Patient washes, rinses and Yes dries hands: Patient performs (no make-up/ /4 (100%) shaving): Grooming FIM Score 5. Supervision ([place] applies toothpaste or opens containers.) Social interaction/Memory/Problem solving Social Interaction FIM Score 5. Supervision (Needs supv. <10%. Needs encouragement to participate.) Memory FIM Score 5. Supervision (Needs cueing <10%, stressful/ unfamiliar situations.) Problem Solving FIM Score 4. Minimal Assistance (Solves routine problems 75-90%.) Transfers Mode of Locomotion: Wheelchair Bed/Chair/Wheelchair Transfers 5. Supervision (Needs supv. or set-up for FIM Score sliding board, foot rests.) Locomotion- Stairs Device used on Stairs Handrail/s Number of Stairs Ascended/ 8 Descended Patient used handrail/support: Yes Stairs FIM Score 2. Maximal Assistance (Patient = 25% or more, 4- 6 stairs.) Locomotion- walk/wheelchair Most Frequent Mode of Wheelchair Locomotion: Ambulation Distance 53 Walking FIM Score 2. Maximal Assistance (Patient = 25% or more. Minimum of 50 ft.) Wheelchair Propulsion Distance 150 Wheelchair FIM Score 4. Minimal Assistance (Patient = 75% or more. Minimum of 150 ft.) Eating Eating FIM Score 5. Supervision/Set-Up (Needs help w/ containers, cutting meat, etc.) Dressing-Upper body Patient retrieves clothing Yes items: Upper Body Dressing FIM Score 5. Supv./Set-Up ([place] sets out clothes or applies pros./orth.) Dressing-lower body Patient retrieves clothing Yes items: Lower Body Dressing FIM Score 5. Supv./Set-Up ([place] sets out clothes or applies pros./orth.) - Labs CBC & Chem 7: 06/24/19 05:42 06/27/19 08:45 Labs: Laboratory Results - last 72 hr 06/30/19 06/30/19 07/01/19 17:22 20:20 08:55 POC Glucose 163 H 263 H 204 H 07/01/19 07/01/19 07/01/19 12:14 16:45 21:42 POC Glucose 144 H 112 H 320 H 07/02/19 07/02/19 07/02/19 08:27 12:00 16:03 POC Glucose 117 H 141 H 142 H 07/02/19 07/03/19 21:21 07:36 POC Glucose 238 H 100 Assessment and Plan CVA k[place] and cerebellum: Discussed with patient secondary stroke precautions and prognosis along with length of recovery. We'll continue to have conversation with the patient as we see him during his stay with us on rehabilitation. Continue secondary stroke precautions. Monitor for any neurological changes as needed to reassess neuro status. Monitor for poststroke depression. End-stage renal disease on hemodialysis: Continue renal diet. Avoid nephrotoxic medications. Continue hemodialysis on Wednesday. Nephrology consulted. Diabetes: Continue carb controlled diet. Monitor blood glucose and treat with insulin as needed. Patient eating double portions now. Restart glipizide and monitor on sliding scale. DM training and Diet training. Glucometer Rx at discharge. Hypertension: Continue medications as ordered. Monitor blood pressure and adjust medications as needed for normotension. Will evaluate patient and see if we need to hold his blood pressure medications prior to dialysis days. Anemia: Chronic disease related. Continue iron and will order further workup as needed. Constipation: Continue medications and adjust as needed. PRN suppositories available. Scheduled miralax Possible paroxysmal atrial fibrillation noted at outside hospital: We'll place on telemetry monitoring and request cardiology consult. Patient also has a PFO. Will need outside cardiology follow-up Z73.6 ADL dysfunction: OT will work on improving ability to perform ADLs (including assistive devices) to increase independence and decrease caregiver burden and improve functional transfers and mobility training. R26.2 Difficulty walking: PT will work on gait training and proper use of assistive devices and advance as appropriate to use of stairs and outside ambulation on uneven surfaces. R26.81 Unsteadiness on feet: PT will work on improving static and dynamic sitting and standing balance as well as proper use of assistive devices to decrease risk of falls. R26.89 Abnormality of gait: PT will work to improve safety and efficiency of gait through neuromotor training and gait training along with instruction on proper use of assistive devices. M62.81 Muscle weakness: PT & OT will work on strengthening exercises to improve functional strength including mixture of closed and open kinetic chain exercises. R53.81 Debility: PT & OT will work on improving overall functional status to improve participation with ADLs, mobility and social involvement. R53.83 Fatigue: PT & OT will work on improving endurance through aerobic e xercises and therapeutic activity while monitoring patients tolerance for activity and vital signs as needed. DVT ppx: heparin Pain: Continue physical modalities in therapy and pain medications as needed to achieve functional pain control. Sleep: Monitor and address as needed. Bowel: Monitor and address as needed. Appetite: Monitor and address as needed. Discharge planning: Pending therapy progress and care plan meeting. Will continue discussion with therapy team, SW, patient and family. Plan to discharge next Wednesday unless condition changes. Restrictions/ Precautions: Falls, neuro WB status: FWB Functional Hx: ADLs: Independent Cognition: Independent Mobility: No AD Barriers to Discharge: Decreased mobility and ability to perform self care, balance deficits, weakness Estimated Length of Stay: 1418 days Discharge Destination: Home with family
[2019-07-03] MEDS ORDERED: SODIUM CHLORIDE*PRIMING MACHINE ONLY FOR DIALYSIS MC ONE (17:13)
--- NOTE | 2019-07-03 18:43 | Progress Note ---
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 Reports of an aunt. Objective - Vital Signs Vital signs: Vital Signs - 12hr 07/03/19 07/03/19 07/03/19 07:26 08:09 08:10 Temperature 97.0 F L Pulse Rate 73 73 73 Respiratory 20 Rate Blood Pressure 138/74 138/74 138/74 O2 Sat by Pulse 100 Oximetry 07/03/19 07/03/19 07/03/19 14:00 14:10 14:15 Temperature 98.2 F Pulse Rate 69 69 72 Respiratory 18 Rate Blood Pressure 123/70 117/67 127/67 O2 Sat by Pulse Oximetry 07/03/19 07/03/19 07/03/19 14:30 14:45 15:00 Temperature Pulse Rate 70 68 70 Respiratory Rate Blood Pressure 123/67 118/65 119/62 O2 Sat by Pulse Oximetry 07/03/19 07/03/19 07/03/19 15:15 15:30 15:45 Temperature Pulse Rate 70 70 77 Respiratory Rate Blood Pressure 111/61 120/62 119/63 O2 Sat by Pulse Oximetry 07/03/19 07/03/19 07/03/19 16:00 16:15 16:30 Temperature Pulse Rate 78 72 70 Respiratory Rate Blood Pressure 105/61 111/59 108/63 O2 Sat by Pulse Oximetry 07/03/19 07/03/19 16:45 18:16 Temperature 98.5 F Pulse Rate 75 80 Respiratory 20 Rate Blood Pressure 115/66 101/63 O2 Sat by Pulse 100 Oximetry - General Appearance General appearance: well-developed, well-nourished EENT: ATNC Cardiology: regular Gastrointestinal: normal, no tenderness, no distended Integumentary: no rash, warm and dry Neurologic: alert and oriented x3 Musculoskeletal: other (no edema) Psychiatric: cooperative - Lab 06/24/19 05:42 06/27/19 08:45 Most recent lab results Calcium 9.0 mg/dL (8.4-10.2) 06/27/19 08:45 Medications & Allergies - Medications Allergies/Adverse Reactions: Allergies No Known Allergies Allergy (Verified 10/01/13 00:30) Home Medications: Home Medications Medication Instructions Recorded Confirmed Last Taken Type Aspirin [Aspirin Enteric Coated] 81 mg PO DAILY #30 tablet. 10/03/13 06/24/19 06/23/19 09:00 Rx Famotidine [Pepcid] 10 mg PO BID #60 tablet 10/03/13 06/24/19 06/23/19 08:00 Rx amLODIPine 10 mg PO QDAY #30 tablet 10/03/13 06/24/19 06/23/19 08:00 Rx glipiZIDE [Glucotrol] 5 mg PO BID #60 tablet 10/03/13 06/24/19 06/23/19 21:30 Rx Active Medications: Generic Name Dose Route Start Last Admin Trade Name Freq PRN Reason Stop Dose Admin Acetaminophen 650 mg 06/23/19 15:33 Tylenol PO Q6H PRN Non Cardiac Pain or Temp>100.5 Acetaminophen/Hydrocodone Bitart 1 each 06/23/19 18:00 [place] 5/325 PO Q6H PRN Pain, Moderate (4-6) Aspirin 325 mg 06/24/19 08:00 07/03/19 08:09 Ecotrin PO 325 mg QDAY SANTY Administration Atorvastatin Calcium 40 mg 06/23/19 21:00 07/02/19 22:46 Lipitor PO 40 mg QHS SANTY Administration Bisacodyl 10 mg 06/23/19 15:33 Dulcolax [place] QDAY PRN Constipation Bisacodyl 5 mg 06/24/19 12:04 Dulcolax PO QDAY PRN Constipation Calcium Acetate 667 mg 06/26/19 08:47 07/03/19 11:58 Phoslo PO 667 mg TIDWM SANTY Administration Carvedilol 6.25 mg 06/23/19 22:00 07/03/19 08:10 Coreg PO 6.25 mg BID SANTY Administration Dextrose 50 ml 06/23/19 15:22 06/25/19 16:18 D50w (25gm) Syringe IV 50 ml Q30MIN PRN Administration Hypoglycemia Ferrous Sulfate 325 mg 06/23/19 20:00 07/03/19 08:09 Feosol PO 325 mg TID SANTY Administration Glipizide 2.5 mg 07/03/19 08:00 07/03/19 08:11 Glucotrol PO 2.5 mg QDDIAB SANTY Administration Heparin Sodium (Porcine) 5,000 unit 06/23/19 22:00 07/03/19 10:12 Heparin SUB-Q 5,000 unit Q12HR SANTY Administration Hydralazine HCl 10 mg 06/23/19 15:33 Apresoline IV Q4HR PRN HTN SBP>160 Sodium Chloride 100 mls @ 999 mls/hr 06/25/19 12:30 Nacl 0.9% IV ALLAN PRN Hypotension Insulin Human Lispro 0 unit 06/23/19 16:30 07/03/19 11:58 Humalog SUB-Q Not Given ACHS [facility] Protocol Losartan Potassium 50 mg 06/24/19 08:00 07/03/19 08:09 Cozaar PO 50 mg QDAY [facility] Administration Ondansetron HCl 4 mg 06/23/19 15:33 Zofran Odt PO Q8H PRN Nausea And Vomiting Polyethylene Glycol 17 gm 06/27/19 12:00 07/03/19 08:14 Miralax 3350 PO Not Given QDAY [facility]
[2019-07-04] MEDS: INSULIN LISPRO 100 UNIT/ML SUB-Q SCH ×4 (08:19→21:23)
--- NOTE | 2019-07-04 08:23 | Progress Note ---
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 He is s/p dialysis yesterday - flow sheet not available for review. Per RN note, 2L removed. * Continue MWF schedule - UF as tolerated * Continue antiHTN medications * Epogen TIW prn for goal Hb 10-12 * Renal diet Subjective Date of service: 07/04/19 Principal diagnosis: CVA, left pontine and left cerebellum Interval history: Patient off the floor at time of visit. Available vital signs, lab results and nursing notes reviewed. Objective - Exam Narrative Exam: Deferred - patient receiving rehab - Vital Signs Vital signs: Vital Signs - 12hr 07/03/19 07/03/19 07/03/19 20:24 21:00 21:29 Temperature 98.2 F Pulse Rate 80 81 Respiratory 16 17 Rate Blood Pressure 113/64 Blood Pressure 111/54 [Right] O2 Sat by Pulse 100 Oximetry 07/04/19 07/04/19 07/04/19 00:48 01:03 05:19 Temperature 98.6 F 98.5 F Pulse Rate 77 76 75 Respiratory 16 17 Rate Blood Pressure 100/56 Blood Pressure 104/61 [Right] O2 Sat by Pulse 97 98 99 Oximetry - Lab 06/24/19 05:42 06/27/19 08:45 Most recent lab results Calcium 9.0 mg/dL (8.4-10.2) 06/27/19 08:45 Medications & Allergies - Medications Allergies/Adverse Reactions: Allergies No Known Allergies Allergy (Verified 10/01/13 00:30) Home Medications: Home Medications Medication Instructions Recorded Confirmed Last Taken Type Aspirin [Aspirin Enteric Coated] 81 mg PO DAILY #30 tablet. 10/03/13 06/24/19 06/23/19 09:00 Rx Famotidine [Pepcid] 10 mg PO BID #60 tablet 10/03/13 06/24/19 06/23/19 08:00 Rx amLODIPine 10 mg PO QDAY #30 tablet 10/03/13 06/24/19 06/23/19 08:00 Rx glipiZIDE [Glucotrol] 5 mg PO BID #60 tablet 10/03/13 06/24/19 06/23/19 21:30 Rx Active Medications: Generic Name Dose Route Start Last Admin Trade Name Freq PRN Reason Stop Dose Admin Acetaminophen 650 mg 06/23/19 15:33 Tylenol PO Q6H PRN Non Cardiac Pain or Temp>100.5 Acetaminophen/Hydrocodone Bitart 1 each 06/23/19 18:00 [place] 5/325 PO Q6H PRN Pain, Moderate (4-6) Aspirin 325 mg 06/24/19 08:00 07/03/19 08:09 Ecotrin PO 325 mg QDAY SANTY Administration Atorvastatin Calcium 40 mg 06/23/19 21:00 07/03/19 21:30 Lipitor PO 40 mg QHS SANTY Administration Bisacodyl 10 mg 06/23/19 15:33 Dulcolax [place] QDAY PRN Constipation Bisacodyl 5 mg 06/24/19 12:04 Dulcolax PO QDAY PRN Constipation Calcium Acetate 667 mg 06/26/19 08:47 07/03/19 19:06 Phoslo PO 667 mg TIDWM SANTY Administration Carvedilol 6.25 mg 06/23/19 22:00 07/03/19 21:29 Coreg PO 6.25 mg BID SANTY Administration Dextrose 50 ml 06/23/19 15:22 06/25/19 16:18 D50w (25gm) Syringe IV 50 ml Q30MIN PRN Administration Hypoglycemia Ferrous Sulfate 325 mg 06/23/19 20:00 07/03/19 21:20 Feosol PO Not Given TID SANTY Glipizide 2.5 mg 07/03/19 08:00 07/03/19 08:11 Glucotrol PO 2.5 mg QDDIAB SANTY Administration Heparin Sodium (Porcine) 5,000 unit 06/23/19 22:00 07/03/19 21:29 Heparin SUB-Q 5,000 unit Q12HR SANTY Administration Hydralazine HCl 10 mg 06/23/19 15:33 Apresoline IV Q4HR PRN HTN SBP>160 Sodium Chloride 100 mls @ 999 mls/hr 06/25/19 12:30 Nacl 0.9% IV ALLAN PRN Hypotension Insulin Human Lispro 0 unit 06/23/19 16:30 07/04/19 08:19 Humalog SUB-Q Not Given ACHS SANTY Protocol Losartan Potassium 50 mg 06/24/19 08:00 07/03/19 08:09 Cozaar PO 50 mg QDAY SANTY Administration Ondansetron HCl 4 mg 06/23/19 15:33 Zofran Odt PO Q8H PRN Nausea And Vomiting Polyethylene Glycol 17 gm 06/27/19 12:00 07/03/19 08:14 Miralax 3350 PO Not Given QDAY SANTY
[2019-07-04] MEDS: glipiZIDE 5 MG TAB PO SCH (08:38)
[2019-07-04] MEDS: FERROUS SULFATE 325 MG TAB PO SCH ×3 (08:38→21:36)
[2019-07-04] MEDS: ASPIRIN EC 325 MG TAB PO SCH (08:38)
[2019-07-04] MEDS: CALCIUM ACETATE 667 MG CAP PO SCH ×3 (08:38→16:48)
[2019-07-04] MEDS: LOSARTAN 50 MG TAB PO SCH (08:41)
[2019-07-04] MEDS: CARVEDILOL 6.25 MG TAB PO SCH ×2 (08:42→21:37)
[2019-07-04] MEDS: POLYETHYLENE GLYCOL 3350 17 GM POWDER PO SCH (08:43)
[2019-07-04] MEDS: HEPARIN 5,000 UNIT/1 ML VIAL SUB-Q SCH ×2 (10:13→21:39)
--- NOTE | 2019-07-04 15:39 | Progress Note ---
Subjective Date of service: 07/04/19 Principal diagnosis: CVA, left pontine and left cerebellum Interval history: 53-year-old male who presented to dialysis with several days worth of right-sided weakness and facial droop. He previously been told to go to the ER when the symptoms appeared however he neglected to do so. When reporting for dialysis he was refused dialysis and sent directly to the ER. 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 His primary issue is loss of balance and some weakness accompanied by slight disturbance with dysphagia and slurred speech. Echocardiogram showed an ejection fraction of approximate 65% with grade 1 diastolic dysfunction and a positive PFO without emboli noted. there were PACs noted on EKG with cardiology but A flutter was ruled out. He is recommended to have a Holter test performed with cardiology to look for paroxysmal atrial fibrillation. With that new knowledge we will place him on telemetry monitoring while he is here and also request a cardiology consult. He remains on hemodialysis on Wed/Wed/Wed and dialysis has been consulted and called. Overall he appears to be in fairly good condition all t hings considered. Hope to see a good return of function for him over the next several weeks in therapy. Unfortunately shortly after arriving the patient was found on the floor. I haven't discussed with him and need to call for assistance until we have cleared him to safely get up and move around on his own. He denies any pain or injuries from the fall. Fall precautions were ordered at time of admission and I have asked again that bed alarm and wheelchair alarms be placed. Patient is participating in therapy and making good progress. Taking rest breaks as needed. +BM. Denies pain, palpitations, dyspnea, cough, N/V, or joint pain. Telemonitoring with no abnormal results so far. Patient states that his aunt this weekend. GLU better. Discussed monitoring. Patient still has decreased ability to perform self care, ADLs, and safe mobility with increased loss of balance and remains appropriate for inpatient rehabilitation. We will continue to monitor the patient's blood pressure, diabetes control, and renal function while regaining function and ability to perform self care. All records, vitals, labs and medications were reviewed. No other issues per patient, nursing or therapy. Objective - Exam Narrative Exam: MUSCULOSKELETAL SPECIALTY EXAM CONSTITUTIONAL: Well developed, well nourished, appropriately groomed. LEFT hand dominant. RESPIRATORY: Clear to auscultation bilaterally, no increased work of breathing CARDIOVASCULAR: Regular Rate/ Rhythm, no swelling, edema or tenderness in BUE or BLE. All extremities warm. Left upper extremity thrill. Right-sided cath GI: + bowel sounds, soft, NTTP, nondistended. INTEGUMENTARY: Normal, no lesion, rash, masses or bruising noted in extremities. MUSCULOSKELETAL: BUE and BLE normal without defect, crepitus, subluxation, effusion, arthritic changes or TTP. R 4-/5 L 4+/5 ROM decreased on right Tone normal NEURO: Slight right facial droop Coordination decreased on the right Sensation intact in all extremities without extinction. No tremor noted in 4 extremities. Naming and repetition intact. Follows 2 step commands. Aphasia not appreciated Dysarthria slight Dysphagia advanced to regular thins after examination by FOOD CRITIC Neglect not appreciated POSTURE and GAIT: Sitting posture good. Balance impaired. Gait better with rolling walker, some toe drag on R. PSYCH: Alert, oriented x3, affect appears normal. Insight appears impaired with lack of appreciation for deficits but this is improving with education. - Constitutional Vitals: Vital Signs - 12hr 07/04/19 07/04/19 07/04/19 05:19 08:12 08:35 Temperature 36.9 C 36.8 C Pulse Rate 75 83 Respiratory 17 18 Rate Blood Pressure 100/56 105/67 108/60 Blood Pressure [Right] O2 Sat by Pulse 99 100 Oximetry 07/04/19 07/04/19 07/04/19 08:41 08:42 11:50 Temperature 36.9 C Pulse Rate 77 77 78 Respiratory 18 Rate Blood Pressure 108/60 108/60 Blood Pressure 112/64 [Right] O2 Sat by Pulse 98 Oximetry - Allied health notes Allied health notes reviewed: nursing, PT, ST, OT FIMS assessment as documented by PT/OT/ST: Grooming Patient cleans teeth/dentures: Yes Patient mccabe/brushes hair: Yes Patient washes, rinses and Yes dries face: Patient washes, rinses and Yes dries hands: Patient performs (no make-up/ 12/08 (100%) shaving): Grooming FIM Score 5. Supervision ([place] applies toothpaste or opens containers.) Social interaction/Memory/Problem solving Social Interaction FIM Score 5. Supervision (Needs supv. <10%. Needs encouragement to participate.) Memory FIM Score 5. Supervision (Needs cueing <10%, stressful/ unfamiliar situations.) Problem Solving FIM Score 4. Minimal Assistance (Solves routine problems 75-90%.) Transfers Mode of Locomotion: Wheelchair Bed/Chair/Wheelchair Transfers 5. Supervision (Needs supv. or set-up for FIM Score sliding board, foot rests.) Locomotion- Stairs Device used on Stairs Handrail/s Number of Stairs Ascended/ 8 Descended Patient used handrail/support: Yes Stairs FIM Score 2. Maximal Assistance (Patient = 25% or more, 4- 6 stairs.) Locomotion- walk/wheelchair Most Frequent Mode of Wheelchair Locomotion: Ambulation Distance 53 Walking FIM Score 2. Maximal Assistance (Patient = 25% or more. Minimum of 50 ft.) Wheelchair Propulsion Distance 150 Wheelchair FIM Score 4. Minimal Assistance (Patient = 75% or more. Minimum of 150 ft.) Eating Eating FIM Score 5. Supervision/Set-Up (Needs help w/ containers, cutting meat, etc.) Dressing-Upper body Patient retrieves clothing Yes items: Upper Body Dressing FIM Score 5. Supv./Set-Up ([place] sets out clothes or applies pros./orth.) Dressing-lower body Patient retrieves clothing Yes items: Lower Body Dressing FIM Score 5. Supv./Set-Up ([place] sets out clothes or applies pros./orth.) - Labs CBC & Chem 7: 06/24/19 05:42 06/27/19 08:45 Labs: Laboratory Results - last 72 hr 07/01/19 07/01/19 07/02/19 16:45 21:42 08:27 POC Glucose 112 H 320 H 117 H 07/02/19 07/02/19 07/02/19 12:00 16:03 21:21 POC Glucose 141 H 142 H 238 H 07/03/19 07/03/19 07/03/19 07:36 12:01 18:25 POC Glucose 100 136 H 111 H 07/03/19 07/04/19 07/04/19 22:22 07:41 11:23 POC Glucose 199 H 82 81 Assessment and Plan CVA korey and cerebellum: Discussed with patient secondary stroke precautions and prognosis along with length of recovery. We'll continue to have conversation with the patient as we see him during his stay with us on rehabilitation. Continue secondary stroke precautions. Monitor for any neurological changes as needed to reassess neuro status. Monitor for poststroke depression. End-stage renal disease on hemodialysis: Continue renal diet. Avoid nephrotoxic medications. Continue hemodialysis on Wednesday. Nephrology consulted. Diabetes: Continue carb controlled diet. Monitor blood glucose and treat with insulin as needed. Patient eating double portions now. Restart glipizide and monitor on sliding scale. DM training and Diet training. Glucometer Rx at discharge. Hypertension: Continue medications as ordered. Monitor blood pressure and adjust medications as needed for normotension. Will evaluate patient and see if we need to hold his blood pressure medications prior to dialysis days. Anemia: Chronic disease related. Continue iron and will order further workup as needed. Constipation: Continue medications and adjust as needed. PRN suppositories available. Scheduled miralax Possible paroxysmal atrial fibrillation noted at outside hospital: We'll place o n telemetry monitoring and request cardiology consult. Patient also has a PFO. Will need outside cardiology follow-up Z73.6 ADL dysfunction: OT will work on improving ability to perform ADLs (inclu ding assistive devices) to increase independence and decrease caregiver burden and improve functional transfers and mobility training. R26.2 Difficulty walking: PT will work on gait training and proper use of assistive devices and advance as appropriate to use of stairs and outside ambulation on uneven surfaces. R26.81 Unsteadiness on feet: PT will work on improving static and dynamic sitting and standing balance as well as proper use of assistive devices to decrease risk of falls. R26.89 Abnormality of gait: PT will work to improve safety and efficiency of gait through neuromotor training and gait training along with instruction on proper use of assistive devices. M62.81 Muscle weakness: PT & OT will work on strengthening exercises to improve functional strength including mixture of closed and open kinetic chain exercises. R53.81 Debility: PT & OT will work on improving overall functional status to improve participation with ADLs, mobility and social involvement. R53.83 Fatigue: PT & OT will work on improving endurance through aerobic exercises and therapeutic activity while monitoring patients tolerance for activity and vital signs as needed. DVT ppx: heparin Pain: Continue physical modalities in therapy and pain medications as needed to achieve functional pain control. Sleep: Monitor and address as needed. Bowel: Monitor and address as needed. Appetite: Monitor and address as needed. Discharge planning: Pending therapy progress and care plan meeting. Will continue discussion with therapy team, SW, patient and family. Plan to discharge next Wednesday unless condition changes. Restrictions/ Precautions: Falls, neuro WB status: FWB Functional Hx: ADLs: Independent Cognition: Independent Mobility: No AD Barriers to Discharge: Decreased mobility and ability to perform self care, balance deficits, weakness Estimated Length of Stay: 1418 days Discharge Destination: Home with family
--- NOTE | 2019-07-05 07:47 | Progress Note ---
Subjective Date of service: 07/05/19 Principal diagnosis: CVA, left pontine and left cerebellum Interval history: 53-year-old male who presented to dialysis with several days worth of right-sided weakness and facial droop. He previously been told to go to the ER when the symptoms appeared however he neglected to do so. When reporting for dialysis he was refused dialysis and sent directly to the ER. 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 His primary issue is loss of balance and some weakness accompanied by slight disturbance with dysphagia and slurred speech. Echocardiogram showed an ejection fraction of approximate 65% with grade 1 diastolic dysfunction and a positive PFO without emboli noted. there were PACs noted on EKG with cardiology but A flutter was ruled out. He is recommended to have a Holter test performed with cardiology to look for paroxysmal atrial fibrillation. With that new knowledge we will place him on telemetry monitoring while he is here and also request a cardiology consult. He remains on hemodialysis on Wed/Wed/Wed and dialysis has been consulted and called. Overall he appears to be in fairly good condition all t hings considered. Hope to see a good return of function for him over the next several weeks in therapy. Unfortunately shortly after arriving the patient was found on the floor. I haven't discussed with him and need to call for assistance until we have cleared him to safely get up and move around on his own. He denies any pain or injuries from the fall. Fall precautions were ordered at time of admission and I have asked again that bed alarm and wheelchair alarms be placed. Patient is participating in therapy and making good progress. Taking rest breaks as needed. +BM. Denies pain, palpitations, dyspnea, cough, N/V, or joint pain. Telemonitoring with no abnormal results so far. Patient states that his aunt will be buried on Wednesday and is requesting to discharge on to prepare for the . He should be ok, will discuss with PT/OT. GLU better. Patient still has decreased ability to perform self care, ADLs, and safe mobility with loss of balance and remains appropriate for inpatient rehabilitation. We will continue to monitor the patient's blood pressure, d iabetes control, and renal function while regaining function and ability to perform self care. All records, vitals, labs and medications were reviewed. No other issues per patient, nursing or therapy. Objective - Exam Narrative Exam: MUSCULOSKELETAL SPECIALTY EXAM CONSTITUTIONAL: Well developed, well nourished, appropriately groomed. LEFT hand dominant. RESPIRATORY: Clear to auscultation bilaterally, no increased work of breathing CARDIOVASCULAR: Regular Rate/ Rhythm, no swelling, edema or tenderness in BUE or BLE. All extremities warm. Left upper extremity thrill. Right-sided cath GI: + bowel sounds, soft, NTTP, nondistended. INTEGUMENTARY: Normal, no lesion, rash, masses or bruising noted in extremities. MUSCULOSKELETAL: BUE and BLE normal without defect, crepitus, subluxation, effusion, arthritic c hanges or TTP. R 4-/5 L 4+/5 ROM decreased on right Tone normal NEURO: Slight right facial droop Coordination decreased on the right Sensation intact in all extremities without extinction. No tremor noted in 4 extremities. Naming and repetition intact. Follows 2 step commands. Aphasia not appreciated Dysarthria slight Dysphagia advanced to regular thins after examination by ASSEMBLY REPAIRER Neglect not appreciated POSTURE and GAIT: Sitting posture good. Balance impaired. Gait better with rolling walker, some toe drag on R. PSYCH: Alert, oriented x3, affect appears normal. Insight appears impaired with lack of appreciation for deficits but this is improving with education. - Constitutional Vitals: Vital Signs - 12hr 07/04/19 07/04/19 07/05/19 21:00 21:37 00:10 Temperature 36.6 C Pulse Rate 76 88 Respiratory 17 17 Rate Blood Pressure 113/71 125/74 O2 Sat by Pulse 100 Oximetry 07/05/19 07/05/19 05:07 07:23 Temperature 36.9 C 36.8 C Pulse Rate 80 73 Respiratory 17 18 Rate Blood Pressure 117/64 128/67 O2 Sat by Pulse 96 100 Oximetry - Allied health notes Allied health notes reviewed: nursing, PT, ST, OT FIMS assessment as documented by PT/OT/ST: Grooming Patient cleans teeth/dentures: Yes Patient mccabe/brushes hair: Yes Patient washes, rinses and Yes dries face: Patient washes, rinses and Yes dries hands: Patient performs (no make-up/ 4/4 (100%) shaving): Grooming FIM Score 5. Supervision ([place] applies toothpaste or opens containers.) Social interaction/Memory/Problem solving Social Interaction FIM Score 7. Complete [place] (Interacts appropriately. Controls temper.) Memory FIM Score 4. Minimal Assistance (Recognizes and remembers 75-90%.) Problem Solving FIM Score 2. Maximal Assistance (Solves problems 25-49% or needs restraint.) Transfers Mode of Locomotion: Wheelchair Bed/Chair/Wheelchair Transfers 5. Supervision (Needs supv. or set-up for FIM Score sliding board, foot rests.) Locomotion- Stairs Device used on Stairs Handrail/s Number of Stairs Ascended/ 8 Descended Patient used handrail/support: Yes Stairs FIM Score 2. Maximal Assistance (Patient = 25% or more, 4- 6 stairs.) Locomotion- walk/wheelchair Most Frequent Mode of Wheelchair Locomotion: Ambulation Distance 53 Walking FIM Score 2. Maximal Assistance (Patient = 25% or more. Minimum of 50 ft.) Wheelchair Propulsion Distance 150 Wheelchair FIM Score 4. Minimal Assistance (Patient = 75% or more. Minimum of 150 ft.) Eating Eating FIM Score 5. Supervision/Set-Up (Needs help w/ containers, cutting meat, etc.) Dressing-Upper body Patient retrieves clothing Yes items: Upper Body Dressing FIM Score 5. Supv./Set-Up ([place] sets out clothes or applies pros./orth.) Dressing-lower body Patient retrieves clothing Yes items: Lower Body Dressing FIM Score 5. Supv./Set-Up ([place] sets out clothes or applies pros./orth.) - Labs CBC & Chem 7: 06/24/19 05:42 06/27/19 08:45 Labs: Laboratory Results - last 72 hr 07/02/19 07/02/19 07/02/19 08:27 12:00 16:03 POC Glucose 117 H 141 H 142 H 07/02/19 07/03/19 07/03/19 21:21 07:36 12:01 POC Glucose 238 H 100 136 H 07/03/19 07/03/19 07/04/19 18:25 22:22 07:41 POC Glucose 111 H 199 H 82 07/04/19 07/04/19 07/04/19 11:23 16:09 20:48 POC Glucose 81 88 148 H 07/05/19 07:33 POC Glucose 77 Assessment and Plan CVA korey and cerebellum: Discussed with patient secondary stroke precautions and prognosis along with length of recovery. We'll continue to have conversation with the patient as we see him during his stay with us on rehabilitation. Continue secondary stroke precautions. Monitor for any neurological changes as needed to reassess neuro status. Monitor for poststroke depression. End-stage renal disease on hemodialysis: Continue renal diet. Avoid nephrotoxic medications. Continue hemodialysis on Wednesday. Nephrology consulted. Diabetes: Continue carb controlled diet. Monitor blood glucose and treat with insulin as needed. Patient eating double portions now. Restart glipizide and monitor on sliding scale. DM training and Diet training. Glucometer Rx at discharge. Hypertension: Continue medications as ordered. Monitor blood pressure and a djust medications as needed for normotension. Will evaluate patient and see if we need to hold his blood pressure medications prior to dialysis days. Anemia: Chronic disease related. Continue iron and will order further workup as needed. Constipation: Continue medications and adjust as needed. PRN suppositories available. Scheduled miralax Possible paroxysmal atrial fibrillation noted at outside hospital: We'll place on telemetry monitoring and request cardiology consult. Patient also has a PFO. Will need outside cardiology follow-up Z73.6 ADL dysfunction: OT will work on improving ability to perform ADLs (including assistive devices) to increase independence and decrease caregiver burden and improve functional transfers and mobility training. R26.2 Difficulty walking: PT will work on gait training and proper use of assistive devices and advance as appropriate to use of stairs and outside ambulation on uneven surfaces. R26.81 Unsteadiness on feet: PT will work on improving static and dynamic sitting and standing balance as well as proper use of assistive devices to decrease risk of falls. R26.89 Abnormality of gait: PT will work to improve safety and efficiency of gait through neuromotor training and gait training along with instruction on proper use of assistive devices. M62.81 Muscle weakness: PT & OT will work on strengthening exercises to improve functional strength including mixture of closed and open kinetic chain exercises. R53.81 Debility: PT & OT will work on improving overall functional status to improve participation with ADLs, mobility and social involvement. R53.83 Fatigue: PT & OT will work on improving endurance through aerobic exercises and therapeutic activity while monitoring patients tolerance for activity and vital signs as needed. DVT ppx: heparin Pain: Continue physical modalities in therapy and pain medications as needed to achieve functional pain control. Sleep: Monitor and address as needed. Bowel: Monitor and address as needed. Appetite: Monitor and address as needed. Discharge planning: Pending therapy progress and care plan meeting. Will continue discussion with therapy team, SW, patient and family. Plan to dischar ge next Wednesday unless condition changes. Restrictions/ Precautions: Falls, neuro WB status: FWB Functional Hx: ADLs: Independent Cognition: Independent Mobility: No AD Barriers to Discharge: Decreased mobility and ability to perform self care, balance deficits, weakness Estimated Length of Stay: 1418 days Discharge Destination: Home with family
[2019-07-05] MEDS: INSULIN LISPRO 100 UNIT/ML SUB-Q SCH ×4 (07:55→21:48)
--- NOTE | 2019-07-05 07:57 | Progress Note ---
Assessment and Plan Impression: * End-stage renal disease * Acute CVA with residual right-sided weakness and facial droop --MRI brain: acute left pontine, left cerbellar infarct * Diastolic dysfunction * Hypertension * Type II DM * Anemia secondary to ESRD * Secondary hyperparathyroidism Plan: * Hemdialysis today * Continue MWF schedule - UF as tolerated * Continue antiHTN medications - BP controlled * Epogen TIW prn for goal Hb 10-12 - will resume 5000 units qtreatment * Renal diet Subjective Date of service: 07/05/19 Principal diagnosis: CVA, left pontine and left cerebellum Interval history: Patient has no complaints today. Objective - Vital Signs Vital signs: Vital Signs - 12hr 07/04/19 07/04/19 07/05/19 21:00 21:37 00:10 Temperature 97.8 F Pulse Rate 76 88 Respiratory 17 17 Rate Blood Pressure 113/71 125/74 O2 Sat by Pulse 100 Oximetry 07/05/19 07/05/19 05:07 07:23 Temperature 98.5 F 98.3 F Pulse Rate 80 73 Respiratory 17 18 Rate Blood Pressure 117/64 128/67 O2 Sat by Pulse 96 100 Oximetry - General Appearance General appearance: well-developed, well-nourished EENT: ATNC Respiratory: Present: Clear to Ascultation Cardiology: regular, S1S2 Gastrointestinal: normal, no tenderness, no distended Integumentary: no rash, warm and dry Musculoskeletal: other (no edema) Psychiatric: cooperative - Lab 07/05/19 08:10 07/05/19 08:10 Most recent lab results Calcium 9.0 mg/dL (8.4-10.2) 06/27/19 08:45 Medications & Allergies - Medications Allergies/Adverse Reactions: Allergies No Known Allergies Allergy (Verified 10/01/13 00:30) Home Medications: Home Medications Medication Instructions Recorded Confirmed Last Taken Type Aspirin [Aspirin Enteric Coated] 81 mg PO DAILY #30 tablet. 10/03/13 06/24/19 06/23/19 09:00 Rx Famotidine [Pepcid] 10 mg PO BID #60 tablet 10/03/13 06/24/19 06/23/19 08:00 Rx amLODIPine 10 mg PO QDAY #30 tablet 10/03/13 06/24/19 06/23/19 08:00 Rx glipiZIDE [Glucotrol] 5 mg PO BID #60 tablet 10/03/13 06/24/19 06/23/19 21:30 Rx Active Medications: Generic Name Dose Route Start Last Admin Trade Name Freq PRN Reason Stop Dose Admin Acetaminophen 650 mg 06/23/19 15:33 Tylenol PO Q6H PRN Non Cardiac Pain or Temp>100.5 Acetaminophen/Hydrocodone Bitart 1 each 06/23/19 18:00 [place]utan 5/325 PO Q6H PRN Pain, Moderate (4-6) Aspirin 325 mg 06/24/19 08:00 07/04/19 08:38 Ecotrin PO 325 mg QDAY SANTY Administration Atorvastatin Calcium 40 mg 06/23/19 21:00 07/04/19 21:36 Lipitor PO 40 mg QHS SANTY Administration Bisacodyl 10 mg 06/23/19 15:33 Dulcolax PA QDAY PRN Constipation Bisacodyl 5 mg 06/24/19 12:04 Dulcolax PO QDAY PRN Constipation Calcium Acetate 667 mg 06/26/19 08:47 07/04/19 16:48 Phoslo PO 667 mg TIDWM SANTY Administration Carvedilol 6.25 mg 06/23/19 22:00 07/04/19 21:37 Coreg PO 6.25 mg BID SANTY Administration Dextrose 50 ml 06/23/19 15:22 06/25/19 16:18 D50w (25gm) Syringe IV 50 ml Q30MIN PRN Administration Hypoglycemia Ferrous Sulfate 325 mg 06/23/19 20:00 07/04/19 21:36 Feosol PO 325 mg TID SANTY Administration Glipizide 2.5 mg 07/03/19 08:00 07/04/19 08:38 Glucotrol PO 2.5 mg QDDIAB SANTY Administration Heparin Sodium (Porcine) 5,000 unit 06/23/19 22:00 07/04/19 21:39 Heparin SUB-Q 5,000 unit Q12HR SANTY Administration Hydralazine HCl 10 mg 06/23/19 15:33 Apresoline IV Q4HR PRN HTN SBP>160 Sodium Chloride 100 mls @ 999 mls/hr 06/25/19 12:30 Nacl 0.9% IV ALLAN PRN Hypotension Insulin Human Lispro 0 unit 06/23/19 16:30 07/05/19 07:55 Humalog SUB-Q Not Given ACHS SANTY Protocol Losartan Potassium 50 mg 06/24/19 08:00 07/04/19 08:41 Cozaar PO Not Given QDAY SANTY Ondansetron HCl 4 mg 06/23/19 15:33 Zofran Odt PO Q8H PRN Nausea And Vomiting Polyethylene Glycol 17 gm 06/27/19 12:00 07/04/19 08:43 Miralax 3350 PO Not Given QDAY SANTY
[2019-07-05 08:23] LABS: Hematocrit 30.6 % (35.5-45.6); Hemoglobin 10.1 gm/dl (11.8-15.2); Mean Corpuscular HGB Conc 33 % (32-34); Mean Corpuscular Volume 99 fl (84-94); Platelet Count 209 K/mm3 (140-440)
[2019-07-05] MEDS: POLYETHYLENE GLYCOL 3350 17 GM POWDER PO SCH (08:34)
[2019-07-05] MEDS: LOSARTAN 50 MG TAB PO SCH (08:34)
[2019-07-05] MEDS: FERROUS SULFATE 325 MG TAB PO SCH ×3 (08:35→21:45)
[2019-07-05] MEDS: CARVEDILOL 6.25 MG TAB PO SCH ×2 (08:35→21:45)
[2019-07-05] MEDS: ASPIRIN EC 325 MG TAB PO SCH (08:35)
[2019-07-05] MEDS: CALCIUM ACETATE 667 MG CAP PO SCH ×3 (08:35→17:00)
[2019-07-05 08:50] LABS: Calcium 9.3 mg/dL (8.4-10.2)
[2019-07-05] MEDS: glipiZIDE 5 MG TAB PO SCH (12:27)
[2019-07-05] MEDS ORDERED: EPOETIN ALFA 10,000 UNIT/1 ML INJ IV PRN (13:38)
[2019-07-05] MEDS: HEPARIN 5,000 UNIT/1 ML VIAL SUB-Q SCH ×2 (20:28→21:45)
[2019-07-06] MEDS: INSULIN LISPRO 100 UNIT/ML SUB-Q SCH ×2 (08:00→12:32)
[2019-07-06] MEDS: LOSARTAN 50 MG TAB PO SCH (08:00)
[2019-07-06] MEDS: CARVEDILOL 6.25 MG TAB PO SCH (08:00)
[2019-07-06] MEDS: HEPARIN 5,000 UNIT/1 ML VIAL SUB-Q SCH ×2 (08:47→12:32)
[2019-07-06] MEDS: POLYETHYLENE GLYCOL 3350 17 GM POWDER PO SCH (08:48)
[2019-07-06] MEDS: CALCIUM ACETATE 667 MG CAP PO SCH ×2 (08:48→13:08)
[2019-07-06] MEDS: FERROUS SULFATE 325 MG TAB PO SCH ×2 (08:48→13:08)
[2019-07-06] MEDS: glipiZIDE 5 MG TAB PO SCH (08:48)
[2019-07-06] MEDS: ASPIRIN EC 325 MG TAB PO SCH (08:48)
[2019-07-06 12:39] VITALS: BP 117/72
--- NOTE | 2019-07-06 12:51 | Discharge Summary ---
Providers - Providers Date of Admission: 06/23/19 15:22 Date of discharge: 07/06/19 Attending physician: MILTON BENITO III, MD 06/23/19 15:22 Occupational Therapy Evaluate and Treat [CONS] Routine Comment: Reason For Exam: ADL dysfunction Physical Therapy Evaluation and Treat [CONS] Routine Comment: Reason For Exam: Mobility Dysfunction Speech Therapy Evaluation and Treat [CONS] Routine Reason For Exam: Dysphagia and Cog Eval & Treat 06/23/19 15:32 Consult to Case Management [CONS] Routine Services Needed at Discharge: Home Health Services Notified:: cm notified 06/23/19 15:42 Consult to Physician [CONS] Routine Comment: Consulting Provider: NATALIIA MEDINA Physician Instructions: Reason For Exam: ESRD on HD, renal mgmnt 06/29/19 11:00 Consult to Dietitian/Nutrition [CONS] Routine Physician Instructions: Reason For Exam: Diabetes, ESRD Reason for Consult: Diet education Primary care physician: CHUCK BONER Hospitalization Reason for admission: CVA Condition: Fair Hospital course: 53-year-old male who presented to dialysis with several days worth of right- sided weakness and facial droop. He previously been told to go to the ER when the symptoms appeared however he neglected to do so. When reporting for dialysis he was refused dialysis and sent directly to the ER. 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 His primary issue is loss of balance and some weakness accompanied by slight disturbance with dysphagia and slurred speech. Echocardiogram showed an ejection fraction of approximate 65% with grade 1 diastolic dysfunction and a positive PFO without emboli noted. there were PACs noted on EKG with cardiology but A flutter was ruled out. He is recommended to have a Holter test performed with cardiology to look for paroxysmal atrial fibrillation. With that new knowledge we will place him on telemetry monitoring while he is here and also request a cardiology consult. He remains on hemodialysis on Wed/Wed/Fri and dialysis has been consulted and called. Overall he appears to be in fairly good condition all things considered. Hope to see a good return of function for him over the next several weeks in therapy. Unfortunately shortly after arriving the patient was found on the floor. I haven't discussed with him and need to call for assistance until we have cleared him to safely get up and move around on his own. He denies any pain or injuries from the fall. Fall precautions were ordered at time of admission and I have asked again that bed alarm and wheelchair alarms be placed. Patient progressed fairly well with therapy. Still has loss of balance at times with ambulation. Had hoped to get him to a quad cane level however he was not safe and stable enough with this prior to discharge. We'll discharge him home with a rolling walker. Needs occasional supervision and or contact guard assist due to loss of balance. Doing well with occupational therapy and ADLs. Cognitively the patient seems to be at baseline. Do not feel that there is any further progress being made with speech therapy at home. We'll discharge him with home health nursing to monitor diabetes and hypertension as well as medication management, physical therapy and occupational therapy to improve ambulation, strengthening, endurance, and balance. Discussed with the patient and the father that he is not to drive for a period to 3 months or until his primary care physician approves his ability to drive. Patient has had a stroke still is having weakness and issues with balance and is not a safe driving candidate at this point. Also discussed both father and the patient that he needs to maintain good control over his blood pressure and diabetes and monitor those items on a regular basis and take the values to his PCP for further medication adjustment. Discussed secondary stroke prevention as well and the seriousness of having a second stroke. Blood pressure was fairly well controlled on current medications. He did have a few episodes of lower blood pressure and not sure if this is due to change in diet while he is in the hospital or possibly changes after the stroke. Due to this will decrease his dose of Cozaar slightly and have him follow-up with his PCP to readjust as needed blood pressure control. Diabetes was also well controlled on his home medication however he was becoming hypoglycemic. This seemed change once we doubled his portions which was more in line with what he eats at home. Still decreasing his dose of glipizide currently due to fair glucose control and concern for having episodes of hypoglycemia at home combined with his propensity for decreased balance currently after the stroke. We've written a prescription for diabetes monitoring equipment and have had nursing teaching him how to check his own blood sugar. Reinforce the seriousness of this as well as he does not need to add amputations or vision loss issues to his current condition. Patient tolerated dialysis well and had no issues from a renal standpoint while he was on rehabilitation. We will discharge him back to his home dialysis Center. He'll need a follow-up with his mess attendant after discharge. Disposition: [id number] HOME UNDER HOME HLTH Time spent for discharge: >30 mins Core Measure Documentation - Palliative Care Palliative Care/ Comfort Measures: Not Applicable - Core Measures Any of the following diagnoses?: stroke - Stroke Discharge Requirements Statin for LDL = or >70 mg/dl on DC: Yes Anticoag for atrial fib/atrial flutter: Not Applicable Antithrombotic for ischemic stroke: Yes Exam - Physical Exam Narrative exam: MUSCULOSKELETAL SPECIALTY EXAM CONSTITUTIONAL: Well developed, well nourished, appropriately groomed. LEFT hand dominant. RESPIRATORY: Clear to auscultation bilaterally, no increased work of breathing CARDIOVASCULAR: Regular Rate/ Rhythm, no swelling, edema or tenderness in BUE or BLE. All extremities warm. Left upper extremity thrill. Right-sided cath GI: + bowel sounds, soft, NTTP, nondistended. INTEGUMENTARY: Normal, no lesion, rash, masses or bruising noted in extremities. MUSCULOSKELETAL: BUE and BLE normal without defect, crepitus, subluxation, effusion, arthritic changes or TTP. R 4-/5 L 4+/5 ROM decreased on right Tone normal NEURO: Slight right facial droop Coordination decreased on the right Sensation intact in all extremities without extinction. No tremor noted in 4 extremities. Naming and repetition intact. Follows 2 step commands. Aphasia not appreciated Dysarthria slight Dysphagia advanced to regular thins after examination by FLOW WORKER Neglect not appreciated POSTURE and GAIT: Sitting posture good. Balance impaired. Gait better with rolling walker, some toe drag on R. PSYCH: Alert, oriented x3, affect appears normal. Insight appears impaired with lack of appreciation for deficits but this is improving with education. - Constitutional Vitals: Temp Pulse Resp BP Pulse Ox 36.9 C 85 18 117/72 99 07/06/19 11:20 07/06/19 11:20 07/06/19 11:20 07/06/19 11:20 07/06/19 11:20 Plan Activity: no driving until cleared by PCP, fall precautions Weight Bearing Status: Full Weight Bearing Diet: renal (Diabetic) Special Instructions: record daily BP diary, record blood sugar diary Durable Medical Equipment Needed Upon Discharge: Walker-Rolling, other (Shower chair) Care Plan Goals: Follow-up with cardiology for 30 day Holter monitoring. Discussed with patient and father that he is not to drive for a minimum of 3 months and until he has followed up with his PCP. Also discussed secondary stroke precautions and instructed him on maintaining a record of his blood pressure and glucose to share with his PCP. Follow up with: PRIMARY CARE, [Primary Care Provider] - 7 Days JINA MARRUFO MD [Staff Physician] - 7 Days AN TELLES MD [Staff Physician] - 7 Days (30 day Holter monitor rec in acute hospital setting.) Prescriptions: AtorvaSTATin [Lipitor] 40 mg PO QHS #30 tablet Aspirin EC 325 mg PO QDAY #30 tablet Ferric Citrate (Nf) [Auryxia] 210 mg PO DAILY #1 tablet Carvedilol [Coreg] 6.25 mg PO BID #60 tablet Losartan [Cozaar] 25 mg PO QDAY #15 tablet glipiZIDE [Glucotrol] 2.5 mg PO QDDIAB #30 tablet Calcium Acetate [Phoslo] 667 mg PO TIDWM #90 capsule Other Discharge Orders: Glucometer (Amb) Location: None Selected Glucometer supplies[Amb] Location: None Selected
== END 2019-07-06 13:38 | disposition home health service (06) | DRG 56 ==
LOC: UNDOADMIN 15:03 → 3A 15:03 → 3B 15:22
PROVIDERS: ADMIT Physical Medicine & Rehabilitation; ATTEND Physical Medicine & Rehabilitation
PROC: 5A1D70Z Performance of Urinary Filtration, Intermittent, Less than 6 Hours Per Day (ICD-10-PCS; principal; 2019-06-26)
PROC: 5A1D70Z Performance of Urinary Filtration, Intermittent, Less than 6 Hours Per Day (ICD-10-PCS; 2019-06-28)
PROC: 5A1D70Z Performance of Urinary Filtration, Intermittent, Less than 6 Hours Per Day (ICD-10-PCS; 2019-06-30)
PROC: 5A1D70Z Performance of Urinary Filtration, Intermittent, Less than 6 Hours Per Day (ICD-10-PCS; 2019-07-03)
PROC: 5A1D70Z Performance of Urinary Filtration, Intermittent, Less than 6 Hours Per Day (ICD-10-PCS; 2019-07-05)
DX: I69.351 Hemiplegia and hemiparesis following cerebral infarction affecting right dominant side (principal); I63.9 Cerebral infarction, unspecified; N18.6 End stage renal disease; I13.2 Hypertensive heart and chronic kidney disease with heart failure and with stage 5 chronic kidney disease, or end stage renal disease; N25.81 Secondary hyperparathyroidism of renal origin; E11.22 Type 2 diabetes mellitus with diabetic chronic kidney disease; D63.8 Anemia in other chronic diseases classified elsewhere; I48.0 Paroxysmal atrial fibrillation; R53.81 Other malaise; R13.10 Dysphagia, unspecified; I50.9 Heart failure, unspecified; M62.81 Muscle weakness (generalized); Z82.49 Family history of ischemic heart disease and other diseases of the circulatory system; Z83.3 Family history of diabetes mellitus; Z79.82 Long term (current) use of aspirin; Z79.899 Other long term (current) drug therapy; Z99.2 Dependence on renal dialysis
CPT/HCPCS: 36415; 80048; 80053; 80074; 82962; 85025; 85027; 93005; 93010; G0378; G0515; A9270-GY; J0885; J1644; J1815; J7030